=== PATIENT | female | born 1950 | race Caucasian/White ===

== ENCOUNTER 2018-05-24 01:24 | Outpatient (CLI) | payer BC, SELFPAY ==
[2018-05-24 11:15] LABS: HCT 36.4 % (36.0-46.0); HGB 11.7 g/dL (12.0-15.5); Mean Corp. HGB Concentration 32.1 g/dL (32.0-36.0); Mean Corpuscular Hemoglobin 29.4 pg (27.0-33.0); Mean Corpuscular Volume 91.5 fL (80-95); Mean Platelet Volume 10.5 fL (8.0-11.0); Platelet Count 228 x1000/uL (130-400); RBC 3.98 m/cumm (4.00-5.20); RBC Distribution Width 13.3 % (11.7-14.6); White Blood Cell Count 4.47 k/cumm (4.4-10.8)
[2018-05-24 11:45] LABS: ALT 19 U/L (12-78); AST 14 U/L (15-37); Albumin 3.4 g/dL (3.4-5.0); Alkaline Phosphatase 61 U/L (46-116); Anion Gap 6.5 mmol/L (3-11); BUN 30 mg/dL (7-18); Bilirubin, Total 0.7 mg/dL (0.2-1.0); CO2 30.5 mmol/L (21.0-32.0); CREATININE 1.06 mg/dL (0.55-1.02); Calcium 8.8 mg/dL (8.5-10.1); Chloride 103 mmol/L (98-107); Glucose 83 mg/dL (70-100); Potassium 4.3 mmol/L (3.5-5.1); Sodium 140 mmol/L (136-145); TSH 1.31 uIU/mL (0.358-3.74); Total Protein 6.2 g/dL (6.4-8.2)
== END 2018-05-24 01:44 ==
PROVIDERS: PCP Family Medicine; Visit Provider Family Medicine
DX: Z00.00 Encounter for general adult medical examination without abnormal findings (principal); E03.9 Hypothyroidism, unspecified
CPT/HCPCS: 36415; 80053; 85027; 84443

== ENCOUNTER 2018-05-30 07:05 | Day surgery (SDC) | payer BC, SELFPAY ==
--- NOTE | 2018-05-29 10:01 | POEE_ITS ---
History of Present Illness Chief Complaint: Progressive decreased vision, left eye Narrative: The patient is a 67-year old female with history of myopia who has had progressive decreased vision in her left eye over the past year, present particularly while driving. On examination she was noted to have moderate nuclear cataract of the left eye with best corrected vision of 20/70. The option of cataract surgery was offered to the patient and she wished to proceed. NOTE: The Chief Complaint, HPI, Past Medical History, Past Surgical History, Family History, Social History, Medications, and complete Ophthalmic Exam with detailed Assessment and Plan have already been documented in the patient's outpatient ophthalmic record and are not covered again in detail here. PFSH Family History Mother Essential hypertension Hyperlipidemia Father Essential hypertension Heart disease Hyperlipidemia Neoplasm Brother Diabetes Grandfather No problems noted. Grandfather No problems noted. Grandmother Diverticulitis Grandmother No problems noted. Son No problems noted. Daughter Asthma Daughter Depression Medical History Nuclear sclerotic cataract of left eye (Acute) Hypothyroidism Osteoarthritis Social History current occupational status: employed current occupation: [employer] INS[employer]OR pets and animals: No frequency: 5-6 times per week duration: 15-30 minutes/day Smoking/Tobacco Use Status: Never alcohol intake: current alcohol intake frequency: a few times a month substance use type: does not use derik/holiness: [facility] special derik needs: No Surgical History Colonoscopy - IV Sedation (07/21/16) PROCEDURES Replacement of total knee joint Total replacement of hip Meds Home Medications Medication Instructions Recorded Confirmed Type acetaminophen 1 - 2 tab PO BID PRN tab-cap 12/22/12 05/26/18 History clobetasol 1 jose daniel VG BID PRN #60 gm 12/22/12 05/26/18 History levothyroxine 112 mcg PO DAILY #90 tab-cap 09/02/17 05/26/18 Rx Allergies Allergy/AdvReac Type Severity Reaction Status Date / Time No Known Allergies Allergy Unverified 05/17/18 09:30 Exam OCULAR EXAM:: Visual acuity at distance: Best corrected 20/25 right eye, 20/70 left eye Pupils: Pupils equal, round, and reactive without afferent pupillary defect IOP: 15 OD 14 OS Extraocular Motility: Normal Pertinent Slit Lamp Findings: Significant for pupils dilating to 6 mm OU. 1+ nuclear cataract OD. 2+ nuclear cataract OS. Dilated Funduscopic Examination: Disc cupping is 0.2 OU. The optic nerves have good color. There are drusen present in both macula. Peripheral retina and vitreous is normal. BRIGHTNESS ACUITY TESTING (BAT):: Off left eye 20/70 Low: 20/100 Medium: 20/100 High: 20/100 Assessment and Plan (1) Nuclear sclerotic cataract of left eye: Current visit: No Status: Acute Assessment: Visually significant cataract, left eye. Plan: Cataract extraction with intraocular lens implantation, left eye Note: NOTE:: The details of the planned surgery, including the risks, indications, limitations,expectations,outcome and possible complications were explained to the patient. The patient understands the complications including, but not limited to: infection, hemorrhage, posterior dislocation of the lens or nuclear fragments which may require the intervention of a vitreoretinal surgeon, possible loss of the eye, or from anesthetic complications. The patient has been made aware of the option of not having surgery, that vision following surgery may not be equal to that prior to surgery, and that the planned surgery may not achieve the intended results. Following this discussion, which the patient appeared to understand, the patient wishes to proceed with cataract surgery with lens implantation of the affected eye to improve and maximize vision.
--- NOTE | 2018-05-30 06:53 | W.PM.OP ---
Date of service: 05/30/18 Time of Service: 08:50 Operative Note PRE-OP DIAGNOSIS: Cataract, left eye POST-OP DIAGNOSIS: same PROCEDURE: Cataract extraction using phacoemulsification with intraocular lens implant, left eye SURGEON: Teddy Díaz ANESTHESIA: MAC and local (sub-tenon's anesthetic infiltration) PATHOLOGY: none sent COMPLICATIONS: None Patient was transported to: same day Patient's condition: stable Implants: [employer] / [employer] Tecnis [id number] Indications: Progressive decreased vision due to cataract, left eye Procedure Description: CATARACT SURGERY OPERATIVE REPORT PREOPERATIVE DIAGNOSIS: Nuclear cataract, left eye, symptomatic POSTOPERATIVE DIAGNOSIS: Same OPERATION: Cataract extraction using phacoemulsification with posterior chamber intraocular lens implant, left eye. IOL: IOL Saddle Maker/Model: [employer] / MAURY Tecnis ZCB00 IOL Power: + 18.0 diopters IOL Serial Number: [id number] Optic Diameter: 6.0mm Haptic/Overall Diameter: 13.0mm PHACO INFO: Dick [employer]urion Vision System with OZil and Active Fluidics Cumulative Dispersed Energy (CDE): 12.1 seconds SURGEON: Teddy Díaz MD, TORY ANESTHESIA: Monitored Anesthesia Care (MAC), with local sub-tenon's anesthetic infiltration COMPLICATIONS: None SPECIMENS: None INDICATIONS FOR PROCEDURE: The patient is a 67-year-old lady with history of myopia who has developed symptomatic nuclear cataract in the left eye. She has a history of macular drusen as well. Cataract surgery is undertaken and attempt to improve and maximize her vision. She desires to remain myopic postoperatively. She understands that postoperative visual acuity may be limited by the presence of pre-existing macular drusen. PROCEDURE: The correct surgical eye was identified and marked as the left eye and the pupil was dilated in the preoperative area using mydriatics, cycloplegics, and NSAIDS (except in aspirin allergic patients). The dilated pupil size was 8.0 mm. Oral sedation was administered in the form of an Imprimis MKO Melt (midazolam 3mg/ketamine 25mg/ondansetron 2mg). The patient was brought to the operating room where cardiopulmonary monitoring was instituted and surgical time-out was performed, confirming the correct operative eye and IOL power. Topical anesthesia was administered and ophthalmic povidone-iodine 5% was instilled into the conjunctival fornices. Lidocaine gel was applied to the cornea and the janeen-ocular area was prepped with Betadine 10% solution and draped in the usual sterile fashion for intraocular surgery. Steri-strips were used to cover the lashes and lid margins and an adhesive eye drape was placed. Care was taken to isolate the lashes and lid margins under the Steri-strips and adhesive eye drape. A lid speculum was placed between the lids of the operative eye and the Aston-Denis operating microscope was maneuvered into position. Rima scissors were then used to make a conjunctival buttonhole approximately 6mm posterior to the limbus in the inferonasal quadrant. Blunt dissection was carried out to expose bare sclera, and a blunt-tipped sub-tenon?s anesthesia cannula was introduced and passed posteriorly along the globe where non-preserved plain lidocaine was injected into posterior sub-Tenon?s space. A sideport knife was used to make a paracentesis port at the 12:00 postion and the anterior chamber was filled with Healon GV. A 2.4mm keratome knife was used to create a half-thickness groove at the limbus and then to construct a three-plane near-clear corneal tunnel extending 2.0mm into clear cornea at the 3:00 position. A flap was raised on the anterior capsule and capsulorhexis forceps were used to complete a continuous curvilinear capsulorhexis of 5.0 mm. Balanced salt solution was then used to perform cortical cleaving hydrodissection and nuclear hydrodelineation until the lens could be freely rotated within the capsular bag. The lens nucleus was then disassembled and removed within the capsular bag and iris plane using phacoemulsification. Residual cortical material was removed using the 45-degree angled silicone I/A tip with 0.3mm port. The posterior capsule was carefully polished to remove as much residual lens epithelial cells as safely possible. The capsular bag was then inflated and the anterior chamber deepened with viscoelastic. The lens implant described above was inserted into the capsular bag using the MAURY [place] Injector. A Kuglen hook was used to dial the IOL into position. Residual viscoelastic was then removed first from posterior to the IOL, then from the anterior chamber using the I/A handpiece. The lens implant was noted to center nicely within the capsular bag. The incisions were stromally hydrated, and the anterior chamber was reformed using BSS. Then 0.4cc of moxifloxacin 1.5mg/ml were injected into the capsular bag and anterior chamber. The incisions were checked with a Weck spear and found to be secure. Several drops of ophthalmic povidone-iodine 5% were then applied to the eye followed by two drops of Imprimis combination moxifloxacin/dexamethasone solution. The drapes were removed and a clear plastic protective eye shield was placed over the eye. The patient was then returned to [facility] in stable condition.
[2018-05-30 07:17] VITALS: BP 138/68; PULSE 75; RESP 16; TEMP 36.5; O2SAT 100
[2018-05-30] MEDS: Lidocaine 2% Jelly 6 ML SYR (08:20)
[2018-05-30] MEDS: Balanced Salt Soln.-PLUS 500 ML BAG (08:24)
[2018-05-30] MEDS: Lidocaine 1% Pres-Free 5 ML VIAL (08:24)
[2018-05-30] MEDS: Povidone-Iodine Ophth 30 ML BTL (08:44)
--- NOTE | 2018-05-30 08:49 | W.PM.DSUDISC ---
Discharge Plan Discharge Details Reason For Visit: CATARACT OS Attending Provider: Teddy Díaz Primary Care Provider: Ander Villarreal Home Meds and New Rx's Prescriptions: No Action acetaminophen 500 MG tablet 1 - 2 tab PO BID PRN RF: 0 clobetasol 60 GM ointment 1 jose daniel VG BID PRN Qty: 60 RF: 4 levothyroxine 112 MCG tablet 112 mcg PO DAILY Qty: 90 RF: 3 Discharge Instructions Stand Alone Forms: Post-op Topical Cataract, Phil Castillo (DSU) DS: Diagnosis Discharge Diagnosis (1) Nuclear sclerotic cataract of left eye: Status: Resolved (2) Status post cataract extraction and insertion of intraocular lens of left eye: Status: Chronic
[2018-05-30 09:10] VITALS: BP 111/65; PULSE 55; RESP 16; TEMP 36.8; O2SAT 99
== END 2018-05-30 09:15 | disposition home or self-care (01) ==
PROVIDERS: PCP Family Medicine; Visit Provider Ophthalmology
PROC: (CPT 66984; principal; 2018-05-30 08:30)
DX: H25.12 Age-related nuclear cataract, left eye (principal)
CPT/HCPCS: 66984; V2632

== ENCOUNTER 2018-10-04 01:20 | Outpatient (CLI) | payer BC, SELFPAY ==
--- NOTE | 2018-10-04 08:26 | DI.MAMMO_ITS ---
SYMPTOMS/DIAGNOSIS: SCREENING, Z12.31, GENERAL ADULT MEDICAL EXAM, Z00.00 MAMMOGRAM: Mammograms were interpreted according to the usual protocol including computer analysis with CAD system, tomosynthesis and C view imaging. Comparison with prior examinations. Breast density C. No suspicious masses are seen. No suspicious microcalcifications are seen in the right breast. There is a collection of calcifications in the outer left breast. These areas should be further evaluated with magnification views. Ultrasound may be indicated at that time. The skin and axilla appear stable. IMPRESSION: Additional views of the left breast. Category 0. MQSA ASSESSMENT OF FINDINGS: Incomplete: Needs additional imaging evaluation. Category 0. Patient will receive a letter notifying them of these results. Bi-RADS category C. The breasts are heterogeneously dense, which may obscure small masses.
== END 2018-10-04 01:40 ==
PROVIDERS: PCP Family Medicine; Visit Provider Family Medicine
DX: Z00.00 Encounter for general adult medical examination without abnormal findings (principal); Z12.31 Encounter for screening mammogram for malignant neoplasm of breast; R92.8 Other abnormal and inconclusive findings on diagnostic imaging of breast
CPT/HCPCS: 77063; 77067

== ENCOUNTER 2018-10-18 00:25 | Outpatient (CLI) | payer BC, SELFPAY ==
--- NOTE | 2018-10-18 13:40 | DI.COMBO_ITS ---
SYMPTOMS/DIAGNOSIS: F/U ABNORMAL MAMMO, COLLECTION OF CALCIFICATIONS IN OUTER LEFT BREAST ADDITIONAL MAMMOGRAPHIC VIEWS, LEFT BREAST, AND LEFT BREAST ULTRASOUND: Additional images are interpreted according to the usual protocol including tomosynthesis and 2D imaging. Additional mammographic views of the left breast and left breast ultrasound were interpreted in conjunction. These examinations were obtained to evaluate a new group of clumped microcalcifications in the lower outer quadrant of the left breast in the central portion of the breast seen on recent mammography. Magnification spot compression views confirm innumerable microcalcifications with a few pleomorphic forms, but predominantly punctate in appearance. Breast ultrasound shows no convincing mass. No calcifications identified ultrasonographically. CONCLUSION: New clumped microcalcification with indeterminate to suspicious appearance in the lower outer quadrant of the left breast, as described above. Biopsy recommended. Category 4, breast density category C. The findings were discussed with Dr. Villarreal. [facility] ASSESSMENT OF FINDINGS: Suspicious. Biopsy should be considered. Category 4. Patient will receive a letter notifying them of these results. Bi-RADS category C. The breasts are heterogeneously dense, which may obscure small masses.
== END 2018-10-18 00:45 ==
PROVIDERS: PCP Family Medicine; Visit Provider Family Medicine
DX: Z12.31 Encounter for screening mammogram for malignant neoplasm of breast (principal); R92.8 Other abnormal and inconclusive findings on diagnostic imaging of breast; N63.23 Unspecified lump in the left breast, lower outer quadrant
CPT/HCPCS: 76642; 77063; 77067

== ENCOUNTER 2019-05-26 07:55 | Outpatient (CLI) | payer BC, MEDICARE, SELFPAY ==
[2019-05-26 08:34] LABS: Abs Immature Grans 0.01 k/cumm (0.0-0.09); Absolute Basophil Count 0.02 k/cumm (0.0-0.2); Absolute Eosinophil Count 0.16 k/cumm (0.0-0.7); Absolute Lymphocyte Count 0.68 k/cumm (1.2-3.4); Absolute Monocyte Count 0.48 k/cumm (0.11-0.7); Absolute Neutrophil Count 2.23 k/cumm (1.2-6.7); Basophils % 0.6; Eosinophils % 4.5; HCT 36.4 % (36.0-46.0); HGB 11.7 g/dL (12.0-15.5); Immature Grans % 0.3; Mean Corp. HGB Concentration 32.1 g/dL (32.0-36.0); Mean Corpuscular Hemoglobin 29.5 pg (27.0-33.0); Mean Corpuscular Volume 91.7 fL (80-95); Mean Platelet Volume 9.6 fL (8.0-11.0); Monocytes % 13.4; Neutrophils % 62.2; Platelet Count 238 x1000/uL (130-400); RBC 3.97 m/cumm (4.00-5.20); RBC Distribution Width 13.8 % (11.7-14.6); White Blood Cell Count 3.58 k/cumm (4.4-10.8)
[2019-05-26 10:07] LABS: ALT 21 U/L (14-59); AST 14 U/L (15-37); Albumin 3.6 g/dL (3.4-5.0); Alkaline Phosphatase 62 U/L (46-116); Anion Gap 5.8 mmol/L (3-11); BUN 27 mg/dL (7-18); Bilirubin, Total 0.7 mg/dL (0.2-1.0); CO2 31.2 mmol/L (21.0-32.0); CREATININE 1.06 mg/dL (0.55-1.02); Calcium 8.8 mg/dL (8.5-10.1); Chloride 103 mmol/L (98-107); Estimated GFR 51.25 (mL/min/1.73m2); Glucose 89 mg/dL (70-100); Potassium 4.4 mmol/L (3.5-5.1); Sodium 140 mmol/L (136-145); TSH 2.51 uIU/mL (0.36-3.74); Total Protein 6.4 g/dL (6.4-8.2)
[2019-05-29 06:35] LABS: Vitamin D 25 Total 30.6 ng/ml (30-100)
== END 2019-05-26 08:15 ==
PROVIDERS: PCP Family Medicine; Visit Provider Family Medicine
DX: E03.9 Hypothyroidism, unspecified (principal); M81.0 Age-related osteoporosis without current pathological fracture; Z00.00 Encounter for general adult medical examination without abnormal findings; D64.9 Anemia, unspecified
CPT/HCPCS: 36415; 80053; 82306; 84443; 85025

== ENCOUNTER 2019-08-03 02:23 | Outpatient (CLI) | payer BC, MEDICARE, SELFPAY ==
--- NOTE | 2019-08-03 16:22 | DI.DEXA_ITS ---
EXAM: XR DEXA BONE DENSITY W/WO SIN CLINICAL HISTORY: osteoporosis, M81.0, H/O BREAST CA COMPARISON: No exams were available for comparison FINDINGS: DEXA scan was performed according to the usual protocol. Findings for left hip scanning are T-score -1.5 with left femoral neck T-score -2.1. Prior study of December 2009 showed left hip T-score -1.0. Lumbar spine scanning shows T-score -1.8. Prior study shows T-score -2.4. Left forearm scanning shows T-score -3.8. IMPRESSION: Findings consistent with osteoporosis according to the WHO criteria. Lateral vertebral scanogram show s no evidence of a vertebral compression fracture.
== END 2019-08-03 02:43 ==
PROVIDERS: PCP Family Medicine; Visit Provider Family Medicine
DX: M81.0 Age-related osteoporosis without current pathological fracture (principal)
CPT/HCPCS: 77080

== ENCOUNTER 2020-05-31 02:37 | Outpatient (CLI) | payer MEDICARE, SELFPAY ==
[2020-05-31 11:46] LABS: ALT 20 U/L (14-59); AST 17 U/L (15-37); Albumin 3.8 g/dL (3.4-5.0); Alkaline Phosphatase 69 U/L (46-116); BUN 23 mg/dL (7-18); Bilirubin, Total 0.7 mg/dL (0.2-1.0); CREATININE 1.11 mg/dL (0.55-1.02); Calcium 8.9 mg/dL (8.5-10.1); Chloride 103 mmol/L (98-107); Estimated GFR 48.46 (mL/min/1.73m2); Glucose 90 mg/dL (74-106); Potassium 4.4 mmol/L (3.5-5.1); Sodium 142 mmol/L (136-145); Total Protein 6.8 g/dL (6.4-8.2)
== END 2020-05-31 02:57 ==
PROVIDERS: PCP Family Medicine; Visit Provider Family Medicine
DX: E03.9 Hypothyroidism, unspecified (principal); M81.0 Age-related osteoporosis without current pathological fracture
CPT/HCPCS: 36415; 80053; 82306; 84443

== ENCOUNTER 2020-08-30 01:25 | Outpatient (CLI) | payer MEDICARE, SELFPAY ==
[2020-08-30 10:00] LABS: Anion Gap 6.1 mmol/L (3-11); BUN 28 mg/dL (7-18); CO2 29.9 mmol/L (21.0-32.0); CREATININE 1.1 mg/dL (0.55-1.02); Calcium 9.1 mg/dL (8.5-10.1); Chloride 106 mmol/L (98-107); Estimated GFR 48.96 (mL/min/1.73m2); Glucose 95 mg/dL (74-106); Potassium 4.5 mmol/L (3.5-5.1); Sodium 142 mmol/L (136-145); TSH 0.37 uIU/mL (0.36-3.74)
== END 2020-08-30 01:26 | disposition home or self-care (01) ==
LOC: LBO 01:25
PROVIDERS: PCP Family Medicine; Visit Provider Family Medicine
DX: E03.9 Hypothyroidism, unspecified (principal)
CPT/HCPCS: 36415; 80048; 84443

== ENCOUNTER 2021-03-28 11:53 | Outpatient (CLI) | payer MEDICARE, SELFPAY ==
--- NOTE | 2021-03-28 11:45 | RT.EKG_ITS ---
APPROVED REPORT Exam: Resting ECG Reason for Exam: near syncope Patient Location: O HR:59 bpm ECG Measurements Heart Rate 59 AXIS WI 179 P 53 QRSd 92 QRS 28 QT 424 T 41 QTc 420 Conclusion Sinus bradycardia...rate< 60
== END 2021-03-28 11:54 | disposition home or self-care (01) ==
LOC: DI.CM 11:55
PROVIDERS: PCP Family Medicine; Visit Provider Family Medicine
DX: R55 Syncope and collapse (principal)
CPT/HCPCS: 93010

== ENCOUNTER 2021-04-07 01:33 | Outpatient (CLI) | payer MEDICARE, SELFPAY ==
--- NOTE | 2021-04-07 08:00 | ETT_ITS ---
APPROVED REPORT Exam: Exercise Treadmill Patient Location: Out-Patient Room/Bed: Stress Nurse: Griselda Amaro RN Ordering Provider:KEN HURST MD, Contact Number: [phone] BMI: 25.05 Baseline Rhythm: Sinus Rhythm Indications: Dyspnea, unspecified. Medical History Cardiac Medications: None. Allergies: No known drug allergies Cardiac Risk Factors: FHX of CAD Previous Cardiac Procedures: None. Pretest Chest Pain Characteristics: None. Exercise History: Physically active Physical Disabilities: None. Lung Sounds: Clear to auscultation Heart Sounds: Regular Stress Test Details Test: Exercise stress testing was performed using a Sae protocol. Rest Stress HR Resting HR Supine: 61 bpm Max Heart Rate (APMHR): 148 bpm Resting HR Standin bpm Target HR (85% APMHR): 125 bpm Max HR Achieved: 130 bpm % of APMHR: 87 Recovery HR: 73 bpm HR response to stress: Normal HR response to stress BP Resting BP Supine: 128/82 mmHg Resting BP Standin/80 mmHg Max BP: 152/60 mmHg Recovery BP: 134/76 mmHg BP response to stress: Normal blood pressure response to stress. ECG Resting ECG: Sinus Rhythm Ectopy: None Stress ECG: Sinus Tachycardia ST Change: No significant ST segment changes noted Arrhythmia: rare PVC. Recovery ECG: Sinus Rhythm Recovery ST Change: No significant ST segment changes noted Recovery Arrhythmia: rare PAC Clinical Reason for Termination: Fatigue Stress Symptoms: General Fatigue Exercise duration: 9 min35 sec Highest Stage Reached: Stage 4: 4.2 mph at 16% grade. Exercise capacity: 11.1 METs [place] Treadmill Score: 9.3 Rate Pressure Product: [id number] Stress ECG Conclusion 1. The patient exercised for 9 minutes and 35 seconds (11 METS). Exercise was stopped due to fatigue . 2. Patient had no symptoms suggestive of ischemia 3. There is no evidence of ischemia on the ECG portion of the exam. [place] Treadmill Score is 9.3 which is Low risk. Stress Test Summary STAGE Time (mins) Speed (mph) Grade (%) HR BP SYMPTOMS METS Supine 61 128/82 Standing 86 120/80 1 3 1.7 10 97 130/78 SpO2 93% 4.6 2 6 2.5 12 109 136/74 7 3 9 3.4 14 124 10.2 1 min recovery 118 152/60 SpO2 95% 3 min recovery 85 140/66 6 min recovery 73 134/76 Patient denied any episodes of dizziness, lightheadedness, or shortness of breath during or after exe rcise.
== END 2021-04-07 01:53 ==
PROVIDERS: PCP Family Medicine; Visit Provider Family Medicine
DX: R06.00 Dyspnea, unspecified (principal); Z82.49 Family history of ischemic heart disease and other diseases of the circulatory system
CPT/HCPCS: 93016; 93018; 93017

== ENCOUNTER 2021-05-08 02:38 | Outpatient (CLI) | payer MEDICARE, SELFPAY ==
[2021-05-08 08:39] LABS: Abs Immature Grans 0.01 10^3/uL (0.0-0.06); Absolute Basophil Count 0.04 10^3/uL (0.0-0.2); Absolute Eosinophil Count 0.17 10^3/uL (0.0-0.7); Absolute Lymphocyte Count 1.01 10^3/uL (1.2-3.4); Absolute Monocyte Count 0.45 10^3/uL (0.1-0.8); Absolute Neutrophil Count 2.34 10^3/uL (1.2-6.7); Eosinophils % 4.2; HCT 35.7 % (36.0-46.0); HGB 11.3 g/dL (11.2-15.7); Immature Grans % 0.2; Lymphocytes % 25.1; MCHC 31.7 % (32.0-36.0); MCV 91.8 fL (80-95); MPV 9.6 fL (8.0-11.0); Monocytes % 11.2; Neutrophils % 58.3; Nucleated RBC 0 %; Platelet Count 226 10^3/uL (130-400); RBC 3.89 10^6/uL (3.93-5.22); RDW 13.6 % (11.7-14.6); RDW-SD 46.7 fL; WBC 4.02 10^3/uL (4.4-10.8)
[2021-05-08 10:17] LABS: Anion Gap 5.5 mmol/L (3-11); BUN 32 mg/dL (7-18); CO2 30.5 mmol/L (21.0-32.0); CREATININE 1.1 mg/dL (0.55-1.02); Calcium 8.8 mg/dL (8.5-10.1); Calculated LDL 146 mg/dL (<100); Chloride 106 mmol/L (98-107); Cholesterol 233 mg/dL (<200); Estimated GFR 48.82 (mL/min/1.73m2); Glucose 86 mg/dL (74-106); HDL Cholesterol 76 mg/dL (40-60); Potassium 4.6 mmol/L (3.5-5.1); Sodium 142 mmol/L (136-145); TSH (W/Ref FT4) 1.11 uIU/mL (0.36-3.74); Triglyceride 57 mg/dL (<150)
== END 2021-05-08 02:39 | disposition home or self-care (01) ==
LOC: LBO 02:39
PROVIDERS: PCP Family Medicine; Visit Provider Family Medicine
DX: E03.9 Hypothyroidism, unspecified; R55 Syncope and collapse; Z00.00 Encounter for general adult medical examination without abnormal findings
CPT/HCPCS: 36415; 80048; 80061; 84443; 85025

== ENCOUNTER 2022-06-03 03:23 | Outpatient (CLI) | payer MEDICARE, SELFPAY ==
[2022-06-03 09:34] LABS: COMMENT (LAB VIEW ONLY) 113.77 mg/dL
[2022-06-03 09:38] LABS: Anion Gap 3.1 mmol/L (3-11); BUN 28 mg/dL (7-18); CO2 29.9 mmol/L (21.0-32.0); CREATININE 1.2 mg/dL (0.55-1.02); Calcium 8.6 mg/dL (8.5-10.1); Chloride 102 mmol/L (98-107); Glucose 95 mg/dL (74-106); Potassium 4.3 mmol/L (3.5-5.1); Sodium 135 mmol/L (136-145); TSH (W/Ref FT4) 0.29 uIU/mL (0.36-3.74)
[2022-06-03 09:42] LABS: Microalb ug/mg Crea 192.1 ug/mg Cr
[2022-06-03 10:00] LABS: FREE T4 1.47 ng/dL (0.76-1.46)
== END 2022-06-03 03:24 | disposition home or self-care (01) ==
LOC: LBO 03:24
PROVIDERS: PCP Family Medicine; Visit Provider Family Medicine
DX: E03.9 Hypothyroidism, unspecified (principal); E11.9 Type 2 diabetes mellitus without complications; N18.31 Chronic kidney disease, stage 3a
CPT/HCPCS: 36415; 80048; 82043; 82570; 84439; 84443

== ENCOUNTER 2022-06-09 04:05 | Outpatient (CLI) | payer MEDICARE, SELFPAY ==
[2022-06-09 15:18] LABS: TSH (W/Ref FT4) 0.33 uIU/mL (0.36-3.74)
[2022-06-09 15:34] LABS: FREE T4 1.29 ng/dL (0.76-1.46)
[2022-06-10 13:29] LABS: Albumin 62.2 % (55.8-66.1); Albumin g/dL 3.8 g/dL (3.6-5.2); Total Protein 6.1 g/dL (6.3-8.2)
[2022-06-10 15:27] LABS: Kappa Free Light Chain 2.68 mg/dL (0.33-1.94); Lambda Free Light Chain 1.62 mg/dL (0.57-2.63)
== END 2022-06-09 04:06 | disposition home or self-care (01) ==
PROVIDERS: PCP Family Medicine; Visit Provider Family Medicine
DX: E03.9 Hypothyroidism, unspecified (principal); N18.31 Chronic kidney disease, stage 3a; R80.9 Proteinuria, unspecified
CPT/HCPCS: 36415; 83883; 84165; 84439; 84443

== ENCOUNTER 2022-06-11 12:00 | Outpatient (REF) | payer MEDICARE, SELFPAY ==
[2022-06-11 13:24] LABS: PROTEIN < 6.0 mg/dL (0.0-11.9); Total Volume 1600 ml
[2022-06-17 15:42] LABS: Total Protein Urine 9 mg/dL; Urine Collection Period 24 Hours; Urine Volume 1600 mL
[2022-06-17 15:43] LABS: Albumin, Urine % 30.7 %; Globulins, Urine % 69.3 %; Total Protein, Urine 24hrs 144 mg/24hrs
== END 2022-06-11 12:01 | disposition home or self-care (01) ==
LOC: LBN 12:00
PROVIDERS: PCP Family Medicine; Visit Provider Family Medicine
DX: N18.31 Chronic kidney disease, stage 3a (principal); R80.9 Proteinuria, unspecified
CPT/HCPCS: 84156; 84166; 86335; 81050; 84155

== ENCOUNTER 2023-01-27 02:38 | Outpatient (CLI) | payer MEDICARE, SELFPAY ==
[2023-01-27 12:56] LABS: ALT 18 U/L (14-59); AST 16 U/L (15-37); Albumin 3.5 g/dL (3.4-5.0); Alkaline Phosphatase 64 U/L (46-116); Anion Gap 6.1 mmol/L (3-11); BUN 33 mg/dL (7-18); Bilirubin, Total 0.7 mg/dL (0.2-1.0); CO2 30.9 mmol/L (21.0-32.0); CREATININE 1.3 mg/dL (0.55-1.02); Calcium 8.7 mg/dL (8.5-10.1); Chloride 104 mmol/L (98-107); Estimated GFR 43.15 (mL/min/1.73m2); Glucose 91 mg/dL (74-106); Potassium 4.4 mmol/L (3.5-5.1); Sodium 141 mmol/L (136-145); Total Protein 6.8 g/dL (6.4-8.2)
[2023-01-27 12:58] LABS: COMMENT (LAB VIEW ONLY) 149.04 mg/dL; Microalb ug/mg Crea 12.2 ug/mg Cr
== END 2023-01-27 02:39 | disposition home or self-care (01) ==
LOC: LOS 02:38
PROVIDERS: PCP Family Medicine; Visit Provider Family Medicine
DX: E11.9 Type 2 diabetes mellitus without complications (principal); N18.31 Chronic kidney disease, stage 3a
CPT/HCPCS: 36415; 80053; 82043; 82570

== ENCOUNTER → 2023-02-11 10:44 | Outpatient (BNVA) | payer MEDICARE, SELFPAY | PROVIDERS: PCP Family Medicine; Referring Provider Family Medicine; Visit Provider Physical Therapy Assistant | DX: Z12.11 Encounter for screening for malignant neoplasm of colon (principal) ==

== ENCOUNTER 2023-03-26 06:28 | Day surgery (SDC) | payer MEDICARE, SELFPAY ==
--- NOTE | 2023-03-25 19:36 | HPE_ITS ---
Date of service: 03/26/23 Time of Service: 07:25 Assessment and Plan Assessment and plan (1) Hypothyroidism: Status: Acute (2) Osteoarthritis: Status: Acute (3) Stress incontinence of urine: Status: Acute (4) Varicose veins of lower extremity: Status: Acute (5) Polyp of colon: Status: Acute Assessment and plan: Plan: Colonoscopy w/ general & natural airway. The?patient will be scheduled by my office. Informed consent is obtained for the procedural (explained in simple layman's terms that?the pt and/or family could understand) explaining risks vs benefits and alternatives to the procedure and consequences if we do not do the procedure and need/rational for the procedure. Risks include but are not limited to: bleeding, infection, perforation of colon.? This would necessitate emergency surgery to repair the damage w/ possible ostomy; and other associated complications w/ the required surgery. ? Also complications of anesthesia including aspiration, PA/CVA/, inability to complete the procedure. I discussed with the?patient would they could expect during the procedure, post procedure and recovery time and risks.? The patient understands that they need to have a ride home after the procedure.? The patient was given all this information in writing and expressed understanding. If there are any questions or concerns please feel free to contact our office.? Generally Colonoscopy does not require antibiotics prophylaxis, (6) CKD stage G3a/A1, GFR 45-59 and albumin creatinine ratio <30 mg/g: Status: Acute (7) Ductal carcinoma in situ (DCIS) of left breast: History of Present Illness Narrative: Today 03/26/23 Patient is here today for colonoscopy for Addenomatous polyps.??? They completed a bowel prep with just a clear yellow residual effluent.? They not having any chest pain or shortness of breath, currently.? They are not experiencing any fever or chills.? They deny any productive cough or upper respiratory tract infection signs or symptoms.? They are not having abdominal pain, or nausea and vomiting.? They have not had any changes in medications, past medical history or past surgical history since previously being seen in the office. They have not had any accidents or have been in the ER since the clinic pre-operative evaluation. ??I reviewed the procedure with the patient today, including risks and benefits of the procedure, and what they could expect at home for recovery.? All questions are answered to the patient?s satisfaction today, and they are stable to proceed with the proposed procedure. Office 02/11/21 The patient is here for Colonoscopy pre-op.?Her last screening was in 2015, which was unremarkable. Colonoscopy from 2010 was remarkable for tubular adenomatous polyp.?She denies having any family history of colon cancer.?She describes having more frequent bouts of constipation having difficulty and pain for bowel movements.? She states gone as long as 2 to 3 weeks without a bowel movement.? She rarely notes blood on the toilet paper after bowel movement.? She relates these issues to her hydration status and she intermittently uses MiraLAX to help facilitate bowel movements.? She is currently had significant improvement with her bowel habits and that she now has daily bowel movements which are solid, round pieces she denies having any diarrhea, abdominal pain bloating or discomfort since these changes. -Discussed colonoscopy bowel prep as well as the procedure. Discussed possible complications of the procedure to include bleeding, pain, perforation, missed small lesion/polyp, sore throat, aspiration and adverse reaction to the medications. Questions were answered to patient?s satisfaction. No guarantees were implied or given.? Anesthesia: general (without airway) Previous surgical intolerances: None Previous surgical complications: None Pulmonary risk factors:? None PFT's: None Planned procedure: Yes Sleep apnea risks: No Can climb one flight of stairs (12-13 steps) in less than 30 seconds without stopping and without symptoms: Yes The surgery proposed for this patient is: Low risk Active cardiac conditions: None ECHO: None Stress Test: 2020-patient had no symptoms to suggest ischemia.? No evidence of ischemia on her ECG.? She reached a Hayward treadmill score of 9.3 which is low risk. Active risk factors: None ASA (acetylsalicylic acid):No Beta blockers: No Anti-coagulation:? None Medications to be held: N/a P// Colonoscopy under sedation ? 72 y/o female with history of [id number], orthostatic hypotension and CKD presents for colonoscopy screening pre-op. Her last screening was in 2015, which was unremarkable. Colonoscopy from 2010 was remarkable for tubular adenomatous polyp.. She denies a family history of colon cancer.? She describes having more frequent bouts of constipation having difficulty and pain for bowel movements.? She states gone as long as 2 to 3 weeks without a bowel movement.? She rarely notes blood on the toilet paper after bowel movement.? She relates these issues to her hydration status and she intermittently uses MiraLAX to help facilitate bowel movements.? She is currently had significant improvement with her bowel habits and that she now has daily bowel movements which are solid, round pieces she denies having any diarrhea, abdominal pain bloating or discomfort since these changes.? She denies constitutional symptoms.? Of note the patient does have a diagnosis of vertigo and orthostatic hypotension which affects her mostly when she is changing positions rapidly. She denies chest pain, palpitations, dyspnea or dyspnea with exertion.? She is physically active participating in tennis, golf and pickleball.? She denies prior history or family history of adverse reactions or complications with anesthesia. The patient denies any history of stroke, PA, seizures, bleeding or clotting disorders.? She describes having metal implanted in her right hip.? She has previously received radiation to her left breast. Review of Systems All systems reviewed & are unremarkable except as noted in HPI and below PFSH All Active Problems Hypothyroidism (Acute 02/21/13) Lichen sclerosus et atrophicus (Acute) Osteoarthritis (Acute 06/28/12) Osteoporosis (Acute) Stress incontinence of urine (Acute 05/13/17) Varicose veins of lower extremity (Acute) Polyp of colon (Acute) CKD stage G3a/A1, GFR 45-59 and albumin creatinine ratio <30 mg/g (Acute) Orthostatic hypotension (Chronic) Making adaptations, declines meds at present. 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 Managed by [facility]. Surgical History (Updated 03/26/23 @ 06:34 by Satcy Luevano) History of cataract surgery History of hip replacement S/P left knee arthroscopy Status post cataract extraction and insertion of intraocular lens of left eye (05/30/18) Status post hip replacement Status post left breast lumpectomy Family History Mother , age 94 Essential hypertension Hyperlipidemia Father , age 65 Essential hypertension Heart disease Hyperlipidemia Prostate cancer Brother , age 80 Diabetes Maternal Grandmother , age 88 Diverticulitis Paternal Grandmother No problems noted. Son No problems noted. Daughter Asthma Daughter Depression Maternal Grandfather , age 91 No problems noted. Paternal Grandfather , age 85 No problems noted. Social History Smoking/Tobacco Use Status: Never Second Hand Exposure: Yes Smoking risk assessment performed?: Yes Alcohol Intake: current Alcohol Intake frequency: a few times a week Alcohol type: beer, wine and hard liquor Drug use: Never Substance use type: does not use Caregiver/Support person: No Household members: spouse Housing: house Number of Children: 3 number of grandchildren: 3 Communication Needs: None Do you need help understanding health information?: Never current occupation: RETIRED, worked in offices Pets and animals: No Sexually active: No Do you think of yourself as: straight/heterosexual Current gender identity: female What is your relationship status?: How often do you talk on the phone with friends or family?: three or more times per week How often do you get together with friends or relatives?: twice per week How often do you attend pentecostal or islam services?: 4 or more times per year Do you belong to any clubs or organized social groups?: yes Panel score (0-1 are the most socially isolated patients): 4 What type of physical activity do you participate in: walking Duration: 15-30 minutes/day Frequency: 3-4 times per week Dary/Christianity: Zoroastrian Special dary needs: No Seatbelt use: always Helmet use: Yes Helmet use: always Drive intox or ride w/intox 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 Do you feel safe at home: Yes Do you feel safe in your relationship?: Yes Victim of physical abuse: No Victim of emotional abuse: No Victim of sexual abuse: No Would you like helpful sources: No Meds Allergies and Home Medications Allergies Allergy/AdvReac Type Severity Reaction Status Date / Time No Known Allergies Allergy Unverified 03/26/23 06:36 Home Medications Medication Instructions Recorded Confirmed Type acetaminophen 500 mg tablet 1 - 2 tab PO BID PRN 12/22/12 03/24/23 History clobetasol 0.05 % topical ointment 1 applic vaginal BID PRN #60 grams 05/29/22 03/24/23 Rx levothyroxine 112 mcg tablet 112 mcg PO DAILY #90 tabs 11/30/22 03/26/23 Rx Exam Const Other: PHYSICAL EXAM GENERAL APPEARANCE: Alert, healthy appearance, oriented, x 3,? in no acute distress HYDRATION: Well hydrated HEAD, EYES, EARS, NECK, THROAT: Head is normocephalic, pupils equal, round, reactive to light and accommodation, ocular movement intact, sclera clear and no jaundice. ?Dentition intact. No sore throat.? LUNGS: normal respiration/normal chest excursion. ?Clear to auscultation bilaterally. ?No wheeze. ?HEART: Regular rate and rhythm. no murmurs EXTREMITY: No edema or cyanosis.? no leg pain, redness, swelling.? ABDOMEN: soft and non-tender to palpation.? Normal bowel sounds.? Time Spent Time spent with Patient: 40-54 minutes Time was spent: preparing to see the patient(eg.review tests), obtaining and/or reviewing separately otained hiistory, ordering medications,tests, procedures, referring, communicating with other health senior care provider, indepentently interpreting results, counseling the patient and care coordination
--- NOTE | 2023-03-25 19:41 | W.COLOREPORT ---
Date of service: 03/26/23 Time of Service: 08:23 Colonoscopy Report Date of procedure: 03/26/23 Pre-op diagnosis general: A. polyps Post-op diagnosis procedure note: same Surgeon: Emily Jorge Anesthesia Type: General:No Airway Estimated blood loss (mL): 1 Pathology: other Complications: None Disposition: same day Prep: Miralax/Dulcolax Retraction Time: 21 Procedure Description: After informed consent was obtained the patient was taken to the procedure room and placed in a left decubitous position. Monitors were applied and a time out was done. The patients name, date of , procedure, allergies to medications and metal in their body was reviewed. The patient was then sedated. Once sedated and comfortable a rectal exam was done. External exam was normal. Internal exam revealed a normal sphincter tone and no palpable masses. The scope was then introduced and retrofelexed. No internal hemorrhoids were identified. The scope was then advanced to the cecum. The without difficulty. The TI and appendiceal orifice were identified. The prep was BBPS 2 in all segments for a total of 6. The scope was then slowly retracted over 21 minutes back into the rectum. Polyps were removed at 40cm- 5mm flat polyps removed w/ a cold forcept. All specimens were retrieved and no bleeding is noted. There mucosa is pink and healthy with a normal vascular pattern. There are no diverticula or AVM's. The scope was removed and the patient was woken up and taken back to Same day surgery in stable condition. The patient tolerated the procedure well and there were no immediate complications. Follow up: The patient should follow up in 7-10 years unless they develop changes in bowel habits or other new gastrointestinal complaints.
--- NOTE | 2023-03-25 19:42 | PDOC.DSDIS_ITS ---
Date of service: 03/26/23 Time of Service: 08:22 Discharge Plan Disposition Patient Disposition: Home Condition: Good Discharge Details Reason For Visit: colon scope Attending Provider: Emily Jorge Primary Care Provider: Rimma Alvarez Home Meds and New Rx's Prescriptions: Continued clobetasol 0.05 % ointment 1 applic VG BID PRN Qty: 60 0RF acetaminophen 500 MG tablet 1 - 2 tab PO BID PRN levothyroxine 112 mcg tablet 112 mcg PO DAILY Qty: 90 1RF Discontinued bisacodyl [Dulcolax (bisacodyl)] 5 mg tablet,delayed release (DR/EC) 5 mg PO ONCE Qty: 4 0RF Rx Instructions: Take per colonoscopy instructions provided by ordering providers office polyethylene glycol 3350 17 gram/dose powder 17 g PO ONCE Qty: 238 0RF Rx Instructions: Take per colonoscopy instructions provided by ordering providers office Discharge Instructions Additional Instructions: DSU Colonoscopy Post- Op Instructions Instructions for Everyone who is given Anesthesia: For your safety, please do the following for the next twenty-four (24) hours: *Do Not operate a motor vehicle (car, truck, motorcycle, etc.) *Do Not drink alcoholic beverages or use any recreational drugs for the first 24 hours or while taking pain medications. The medications in your body may have a reaction that can be dangerous. *Do Not make any important decisions or sign any important papers. Findings: x1 small polyp Follow up: My office will send a letter in 2 to 3 weeks time with the results of pathology and when we want you to repeat colonoscopy. 1. No lifting over 20 pounds or strenuous activity for the first 24 hours after your procedure. After 24 hours there are no restrictions on your activity but you may feel fatigued for a few days. 2. After you arrive home you may have a light meal and return to your normal diet as you can tolerate it without feeling sick to your stomach. 3. You may have a bloated, gaseous feeling in your belly (abdomen) after a colonoscopy. Passing gas and belching will help. Walking or lying down on your left side with your knees flexed may relieve the discomfort. Call the office at [phone] (Office) or [phone] (Hospital) right away if you notice any of the following: a.Vomiting of blood or ?coffee ground stools?. b.Rectal bleeding 1Tbsp, blood clots or continuous bleeding. c.Severe belly (abdominal) pain. d.A hard distended belly (abdomen) and an inability to pass gas. 4. Please don?t expect to have a normal BM (bowel movement) for 2-3 days after your procedure. 5. If there are questions regarding the findings of your procedure, please conta ct your doctor 6. If you are unable to contact your doctor with a problem, contact the hospital at [phone]. 7. Continue all your regular medications unless directed otherwise. I understand the above instructions and have no questions. Signature of Patient or Adult Escort Name of Responsible Adult Escort Signature of Nurse Date/Time Activity:: see above Diet:: see above Discharge Orders Discharge Orders: Discharge Order (Routine); Ordered 03/26/23 Ordered By: Emily Jorge DS: Diagnosis Discharge Diagnosis (1) Hypothyroidism: Status: Acute (2) Osteoarthritis: Status: Acute (3) Stress incontinence of urine: Status: Acute (4) Varicose veins of lower extremity: Status: Acute (5) Polyp of colon: Status: Acute Asessment and Plan: The patient is seen and examined after their colonoscopy.? The patient has been able to pass gas.? They are not having abdominal pain.? They have been able to tolerate liquids and a snack.? They do not have any nausea or vomiting.? They are not having any chest pain or shortness of breath.??? They are not having any rectal bleeding. Their vital signs have been stable-see nursing notes. We discussed findings during their colonoscopy, and any biopsies that were done/polyps that were removed. The patient will be sent a letter with any biopsy results, and when to repeat the colonoscopy.-see discharge instructions. Patient was given explicit instructions to follow-up regarding colonoscopy-refer to discharge instructions.? We reviewed resumption of medications. Patient verbalized understanding and discharged in stable and satisfactory condition- See nursing notes. (6) CKD stage G3a/A1, GFR 45-59 and albumin creatinine ratio <30 mg/g: Status: Acute (7) Ductal carcinoma in situ (DCIS) of left breast:
[2023-03-26 06:15] VITALS: BP 123/74; PULSE 79; RESP 16; TEMP 36.6; O2SAT 100
[2023-03-26] MEDS: Lactated Ringers 1,000 ML 80 ML IV (06:48)
--- NOTE | 2023-03-26 07:00 | ANES.PREOP_ITS ---
General Info Date of Service Date Performed: 03/26/23 Height: 5 ft 6.5 in Weight: 67.5 kg Body Mass Index (BMI): 23.6 Surgical Procedure: Operation Date: 03/26/23 07:35 Proposed Procedure Side Surgeon ame Jorge, DO Meds Allergies and Home Medications Allergies Allergy/AdvReac Type Severity Reaction Status Date / Time No Known Allergies Allergy Unverified 03/26/23 06:36 Home Medication Medication Instructions Recorded acetaminophen 500 mg tablet 1 - 2 tab PO BID PRN 12/22/12 clobetasol 0.05 % topical ointment 1 applic vaginal BID PRN #60 grams 05/29/22 levothyroxine 112 mcg tablet 112 mcg PO DAILY #90 tabs 11/30/22 Current Visit Medications: Current Medications Generic Name Dose Route Start Last Admin Trade Name Freq PRN Reason Stop Dose Admin Hyoscyamine Sulfate 0.125 mg 03/26/23 10:02 Hyoscyamine 0.125 Mg Sl/Oral/Chew SL 04/25/23 10:01 DIRECTED PRN Ringer's Solution 1,000 mls @ 80 mls/hr 03/26/23 06:00 03/26/23 06:48 IV 04/24/23 23:59 80 mls/hr INFUSION KANE Administration IV Miscellaneous Supplies 1 each 03/26/23 06:00 Iv Access IV 04/24/23 23:59 DIRECTED KANE Ondansetron HCl 4 mg 03/26/23 10:02 Ondansetron 4 Mg/2 Ml Vial IVP 04/25/23 10:01 Q4H PRN PRN Nausea / Vomiting Sodium Chloride 0 ml 03/26/23 06:00 Normal Saline Flush 10 Ml Syr IV 04/24/23 23:59 PRN PRN Sodium Chloride 0 ml 03/26/23 06:00 Normal Saline 10 Ml Vial IJ 04/24/23 23:59 DIRECTED PRN Sterile Water 0 ml 03/26/23 06:00 Water,Injection,Sterile 10 Ml Vial IJ 04/24/23 23:59 DIRECTED PRN PFSH Active Problems Active Problems: Problem Status Onset Code Hypothyroidism 02/21/13 E03.9 Lichen sclerosus et atrophicus L90.0 Osteoarthritis 06/28/12 M19.90 Osteoporosis M81.0 Stress incontinence of urine 05/13/17 N39.3 Varicose veins of lower extremity I83.90 Polyp of colon K63.5 CKD stage G3a/A1, GFR 45-59 and albumin creatinine ratio <30 mg/g N18.31 Orthostatic hypotension I95.1 Medical History Medical History Basal cell carcinoma of skin (03/25/12) 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 Managed by [facility]. Surgical History Surgical History (Updated 03/26/23 @ 06:34 by Stacy Luevano) History of cataract surgery History of hip replacement S/P left knee arthroscopy Status post cataract extraction and insertion of intraocular lens of left eye (05/30/18) Status post hip replacement Status post left breast lumpectomy Tobacco Smoking/Tobacco Use Status: Never Passive smoking exposure: Yes Second hand exposure: Yes Alcohol Alcohol Intake: current Alcohol intake frequency: a few times a week Alcohol type: beer, wine and hard liquor Substance Use Substance use: Never Substance use type: does not use Vital Signs and Lab Results Vital Signs Most Recent Vital Signs in EMR: Most Recent Vital Signs Temp Pulse Resp BP Pulse Ox 36.6 C 79 16 123/74 100 03/26/23 06:15 03/26/23 06:15 03/26/23 06:15 03/26/23 06:15 03/26/23 06:15 Lab Results Blood Type / Crossmatch: No Data to Display Complete Blood Count: No Data to Display Complete Metabolic Panel: No Data to Display Liver Function Panel: No Data to Display Coagulation Panel: No Data to Display Cardiac Panel: No Data to Display Arterial Blood Gas: No Data to Display Venous Blood Gas: No Data to Display Pancreas Panel: No Data to Display Thyroid Panel: No Data to Display Infectious Disease: No Data to Display Blood Cultures: No Data to Display Toxicology Panel: No Data to Display Imaging and Studies Imaging and Studies Study information below may be from another EMR and interpreted by another provider. Please see original notes in EMR for more complete details. EKG Summary: DATE/TIME OF SERVICE: 03/28/21 1202 : 1950PERFORMING LOCATION: [facility] APPROVED REPORT Exam: Resting ECG Reason for Exam: near syncope Patient Location: O HR:59 bpm ECG Measurements Heart Rate 59 AXIS IN 179 P 53 QRSd 92 QRS 28 QT 424 T41 QTc 420 Conclusion Sinus bradycardia...rate< 60 Stress Test Summary: 04/07/2021:Stress ECG Conclusion 1. The patient exercised for 9 minutes and 35 seconds (11 METS). Exercise was stopped due to fatigue. 2. Patient had no symptoms suggestive of ischemia 3. There is no evidence of ischemia on the ECG portion of the exam. Hayward Treadmill Score is 9.3 which is Low risk. Anesthesia Assessment and Plan Anesthesia History Personal History: No History of Anesthesia Complications Family History: No Family History of Anesthesia Complications Exercise Tolerance Exercise Tolerance: Metabolic Equivalents>4 Pertinent Negatives Pertinent Negatives: No Symptoms of GERD, No Major Cardiovascular Symptoms or Complaints and No Major Pulmonary Symptoms or Complaints Cardiac & Pulmonary Exam Cardiac Exam: Normal S1/S2 Heart Sounds Pulmonary Exam: Clear Bilateral Breath Sounds Implantable Cardiac Device Does patient have a Pacemaker or an ICD?: No Airway Exam Known Difficult Airway: No Mallampati Class: 1 Mouth Opening: Normal (> 3cm) Thyromental Distance: Less than 3 cm Neck Range of Motion: Full ROM Neck Circumference: Normal Teeth Condition: Normal Dentition ASA Classification ASA Score: ASA 2 Emergency Case?: No NPO Status NPO Status: NPO Clears >2 hours, Solids >8 hours Anesthesia Plan Resuscitation Status: Full Code Anesthesia Technique: General Anesthesia Airway Planned: Natural Airway Monitors Used: Standard Monitors
[2023-03-26 07:06] VITALS: BMI 23.6
--- NOTE | 2023-03-26 08:00 | BOWEL_PTH ---
PATIENT: Jorge L Mariano LOC: [facility] U#:[id number] AGE/SX: 72/F ROOM: RE03/26/[address]: Emily Jorge : 1950 BED: DIS: 03/26/2023 SPEC #: [id number] RECD: 03/26/23 12:50 STATUS: [place]ICK REDk #: [id number] YUSRA: 03/26/23 08:[address]: Emily Jorge DEPT: Surgical Specimen RECD BY: Macy Ragsdale ENTERED: 03/26/23 12:50 SP TYPE: Bowel OTHR DR: Rimma Alvarez Tissues: 1 - BIOPSY BOWEL Procedures: GROSS AND MICRO LEVEL 4 Comments: [id number]
[2023-03-26 08:15] VITALS: BP 86/54; PULSE 63; RESP 16; TEMP 36; O2SAT 96
[2023-03-26 08:30] VITALS: BP 117/70
[2023-03-26 08:49] VITALS: BP 143/92; PULSE 55; RESP 16; TEMP 36.4; O2SAT 99
--- NOTE | 2023-03-26 09:22 | W.ANESPOSTOP ---
Postoperative Evaluation Date, Time and Location Date Performed: 03/26/23 Time Performed: 08:50 Patient Location: Day Surgery Unit Vital Signs Most Recent Imported Vital Signs: Most Recent Vital Signs Temp Pulse Resp BP Pulse Ox 36.4 C L 55 L 16 143/92 H 99 03/26/23 08:49 03/26/23 08:49 03/26/23 08:49 03/26/23 08:49 03/26/23 08:49 Pain Score Most Recent Pain Score: Most Recent Pain Score Pain Level 0 03/26/23 08:49 Assessment Mental Status: Awake (Alert & Oriented to Patient Baseline) Airway and Respiratory Function: Patent airway with normal (patient baseline) respiratory exam Cardiovascular Function: Hemodynamically Stable Hydration Status: Adequately Hydrated Nausea & Vomiting: No Nausea or Vomiting Pain: Pt. Denies Any Pain Peripheral Nerve Block: Patient did not receive a nerve block
== END 2023-03-26 09:15 | disposition home or self-care (01) ==
PROVIDERS: PCP Family Medicine; Visit Provider Surgery
PROC: 0DJD8ZZ Inspection of Lower Intestinal Tract, Via Natural or Artificial Opening Endoscopic (ICD-10-PCS; CPT 45378; principal; 2023-03-26 07:30)
DX: Z12.11 Encounter for screening for malignant neoplasm of colon (principal); Z86.010 Personal history of colon polyps; N18.31 Chronic kidney disease, stage 3a; K63.5 Polyp of colon
CPT/HCPCS: 45380; 88305

== ENCOUNTER 2023-06-02 09:39 | Outpatient (CLI) | payer MEDICARE, SELFPAY ==
[2023-06-02 13:21] LABS: TSH (W/Ref FT4) 0.63 uIU/mL (0.36-3.74)
== END 2023-06-02 09:40 | disposition home or self-care (01) ==
LOC: LOS 09:39
PROVIDERS: PCP Family Medicine; Referring Provider Family Medicine; Visit Provider Family Medicine
DX: E03.9 Hypothyroidism, unspecified (principal)
CPT/HCPCS: 36415; 84443

== ENCOUNTER 2024-06-28 02:34 | Outpatient (CLI) | payer MEDICARE, SELFPAY ==
[2024-06-28 12:56] LABS: Anion Gap 4.7 mmol/L (3-11); BUN 35 mg/dL (7-18); CO2 31.3 mmol/L (21.0-32.0); CREATININE 1.2 mg/dL (0.55-1.02); Calculated LDL 145 mg/dL (<100); Chloride 107 mmol/L (98-107); Cholesterol 245 mg/dL (<200); Estimated GFR 47.21 (mL/min/1.73m2); Glucose 83 mg/dL (74-106); HDL Cholesterol 91 mg/dL (40-60); Potassium 4.4 mmol/L (3.5-5.1); Sodium 143 mmol/L (136-145); TSH (W/Ref FT4) 0.95 uIU/mL (0.36-3.74); Triglyceride 47 mg/dL (<150); Vitamin D 25 Total 35.4 ng/mL (30-100)
== END 2024-06-28 02:35 | disposition home or self-care (01) ==
LOC: LOS 02:35
PROVIDERS: PCP Family Medicine; Visit Provider Family Medicine
DX: M81.0 Age-related osteoporosis without current pathological fracture (principal); Z13.6 Encounter for screening for cardiovascular disorders; N18.31 Chronic kidney disease, stage 3a; E03.9 Hypothyroidism, unspecified; I10 Essential (primary) hypertension
CPT/HCPCS: 36415; 80048; 80061; 82306; 84443

== ENCOUNTER 2024-08-29 01:09 | Outpatient (CLI) | payer MEDICARE, SELFPAY ==
[2024-08-29 12:39] LABS: Anion Gap 5.4 mmol/L (3-11); BUN 33 mg/dL (7-18); CO2 29.6 mmol/L (21.0-32.0); CREATININE 1.4 mg/dL (0.55-1.02); Chloride 106 mmol/L (98-107); Estimated GFR 39.23 (mL/min/1.73m2); Glucose 77 mg/dL (74-106); Potassium 4.3 mmol/L (3.5-5.1); Sodium 141 mmol/L (136-145)
== END 2024-08-29 01:10 | disposition home or self-care (01) ==
LOC: LOS 01:10
PROVIDERS: PCP Family Medicine; Visit Provider Family Medicine
DX: I10 Essential (primary) hypertension (principal); N18.31 Chronic kidney disease, stage 3a; E03.9 Hypothyroidism, unspecified; Z23 Encounter for immunization; H90.3 Sensorineural hearing loss, bilateral; L90.0 Lichen sclerosus et atrophicus
CPT/HCPCS: 36415; 80048

== ENCOUNTER 2024-09-28 11:16 | Outpatient (CLI) | payer MEDICARE, SELFPAY ==
--- NOTE | 2024-09-28 10:30 | DI.RAD_ITS ---
Exam(s) XR HIP LT COMPLETE AP PELVIS EXAM: XR HIP LT COMPLETE AP PELVIS CLINICAL HISTORY: left hip pain M70.62 TROCHANTERIC BURSITIS LT HIP R52 PAIN. TECHNIQUE: 2D digital imaging was performed. Three views. COMPARISON: CR RIGHT HIP COMPLETE from 03/27/2011 CR XR DEXA BONE DENSITY W/WO SIN from 08/03/2019 FINDINGS: BONES: No acute fracture is present. No bony destructive lesion is seen. Right hip prosthesis. Sev ere degenerative changes at L4-5. JOINTS: No dislocation present. The SI joints and pubic symphysis are intact. Moderate narrowing of the superior left hip joint space. Minimal periarticular spurring. SOFT TISSUE: Normal. IMPRESSION: Coie-dw-waoqwolv degenerative changes of the left hip. Right hip prosthesis. DATA REPOSITORY: RADIATION DOSE DELIVERED:
== END 2024-09-28 11:36 ==
LOC: DI 11:17
PROVIDERS: PCP Family Medicine; Visit Provider Family Medicine
DX: M70.62 Trochanteric bursitis, left hip (principal)
CPT/HCPCS: 73502

== ENCOUNTER 2024-10-25 13:37 | Outpatient (CLI) | payer MEDICARE, SELFPAY ==
--- NOTE | 2024-10-25 13:30 | RT.EKG_ITS ---
APPROVED REPORT Exam: Resting ECG Reason for Exam: hypotension, hypertension Patient Location: O HR:64 bpm ECG Measurements Heart Rate 64 AXIS DE 187 P 43 QRSd 96 QRS 34 QT 411 T 40 QTc 424 Conclusion Sinus rhythm...normal P axis, V-rate 50- 99 Normal Electrocardiogram
== END 2024-10-25 13:38 | disposition home or self-care (01) ==
LOC: DI.CM 13:38
PROVIDERS: PCP Family Medicine; Visit Provider Family Medicine
DX: I10 Essential (primary) hypertension (principal)
CPT/HCPCS: 93010

== ENCOUNTER 2024-11-15 02:34 | Outpatient (CLI) | payer MEDICARE, SELFPAY ==
--- NOTE | 2024-11-15 07:30 | DI.MRI_ITS ---
Exam(s) MR LOWER JOINT LT WO EXAM: MR LOWER JOINT LT WO CLINICAL HISTORY: SEVERE left groin (hip) pain, not improving with PT,R10.32 TECHNIQUE: Multiplanar multisequence MRI of left hip was performed COMPARISON: MR MRI - R LOWER EXT WO CONT from 04/22/2011 CR XR HIP LT COMPLETE AP PELVIS from 09/28/2024 FINDINGS: Bones: There is marrow edema seen in the left femoral head and neck. There is a linear area of decre ased signal intensity on the T1 weighted images beginning at the lateral aspect of the femoral neck s uspicious for a nondisplaced fracture. There does appear to be disruption of the cortex (series 6001, image 20). There is a small joint effusion. There is narrowing of the superior joint space and loss of articular cartilage. There is marrow edema seen at the articular surface of the superior acetabulu m. There is artifact from the patient's right total hip arthroplasty. The superior labrum appears to be decrease in volume which may represent degeneration. Musculotendinous structures: Musculotendinous structures demonstrate no abnormality. Intrapelvic str uctures demonstrate no significant abnormality. IMPRESSION: 1. There is a linear area of decreased signal intensity on the T1 weighted images in the lateral aspe ct of the left femoral neck suspicious for nondisplaced fracture. There is marrow edema seen in the h ead and neck of the femur. 2. There is a small joint effusion. 3. Degenerative changes are seen in the left hip. DATA REPOSITORY:
== END 2024-11-15 02:54 ==
LOC: DI 02:34
PROVIDERS: PCP Family Medicine; Visit Provider Family Medicine
DX: R10.32 Left lower quadrant pain (principal); M16.12 Unilateral primary osteoarthritis, left hip
CPT/HCPCS: 73721

== ENCOUNTER 2024-11-21 10:26 | Outpatient (CLI) | payer MEDICARE, SELFPAY ==
--- NOTE | 2024-11-21 08:30 | DI.RAD_ITS ---
Exam(s) XR HIP LT AP LAT ONLY EXAM: XR HIP LT AP LAT ONLY CLINICAL HISTORY: LEFT HIP PAIN. TECHNIQUE: 2D digital imaging was performed. Two views. COMPARISON: CR XR HIP LT COMPLETE AP PELVIS from 09/28/2024 MR MR LOWER JOINT LT WO from 11/15/2024 FINDINGS: BONES: No acute fracture is visible. No bony destructive lesion is seen. JOINTS: There is severe narrowing of the left superior hip joint space which has worsened when compar ed with the previous plain films. There is some sclerosis in the superior femoral head and adjacent acetabulum but no evidence of femoral head flattening. The SI joints and pubic symphysis are intact. SOFT TISSUE: Normal. IMPRESSION: Degenerative changes left hip with significant progression from the September examination. No fracture i s visible. No visible femoral head flattening. DATA REPOSITORY: RADIATION DOSE DELIVERED:
== END 2024-11-21 10:27 | disposition home or self-care (01) ==
LOC: DIORS 10:26
PROVIDERS: PCP Family Medicine; Referring Provider Family Medicine; Visit Provider Student in an Organized Health Care Education/Training Program
DX: S72.002A Fracture of unspecified part of neck of left femur, initial encounter for closed fracture (principal); W19.XXXA Unspecified fall, initial encounter; M16.12 Unilateral primary osteoarthritis, left hip; I10 Essential (primary) hypertension; N18.31 Chronic kidney disease, stage 3a
CPT/HCPCS: 99214; 73502

== ENCOUNTER 2024-11-23 02:21 | Outpatient (CLI) | payer MEDICARE, SELFPAY ==
--- NOTE | 2024-11-23 12:30 | DI.US_ITS ---
APPROVED REPORT EXAM: Comprehensive 2D, Doppler, and color-flow Echocardiogram Patient Location: Out-Patient Vinyl Installer: Humberto Morelos RDCS (AE) Indications: Hypotension, murmur Other Information Study Quality: Adequate Conclusion Normal left ventricular wall thickness and chamber size. Ejection fraction is 55%. Wall motion is n ormal Normal right ventricular size and function Left atrium is mildly dilated. Right atrial size is normal There are no structural valvular abnormalities Mild mitral regurgitation Ascending aorta measured at 3.57 cm Wall motion Left Ventricle The left ventricle is normal size. The left ventricular systolic function is normal. The left ventric ular ejection fraction is within the normal range. There is normal left ventricular wall thickness. T here is normal LV segmental wall motion. There is no ventricular septal defect visualized. LVEF is 55 %. Right Ventricle The right ventricle is normal size. The right ventricular systolic function is normal. Atria Left atrium is mildly dilated. The right atrium size is normal. The interatrial septum is intact with no evidence for an atrial septal defect. Aortic Valve Aortic valve is trileaflet Aortic valve is trileaflet. There is no aortic valvular stenosis. No aorti c regurgitation is present. Mitral Valve The mitral valve is normal in structure. No evidence of mitral valve stenosis. Mild mitral regurgita tion. Tricuspid Valve The tricuspid valve is normal in structure. There is no tricuspid valve stenosis. Trace tricuspid reg urgitation. Pulmonic Valve The pulmonary valve is normal in structure. There is no pulmonic valvular stenosis. Mild pulmonic reg urgitation. Great Vessels The aortic root is normal in size. The ascending aorta is mildly dilated. Aortic arch is normal in ca liber. IVC is normal in size and collapses >50% with inspiration. Pericardium There is no pericardial effusion. 2D Dimensions IVSD d PLAX 0.73 cm F: 0.6-1.0 Ao Root d 2.98 cm F: 2.7 - 3.3 LVPW d PLAX 0.67 cm F: 0.6 - 1.0 Ao Asc Diam d 3.57 cm F: 2.3 - 3.1 LVID d PLAX 4.91 cm F: 3.8 - 5.2 LVDs 3.64 cm F: 2.2 - 3.5 LV EF Teichholz 50.7 % FS 25.86 % LV EDV (Teich) 113.6 mL LV ESV (Teich) 56.0 mL Stroke Vol Index (Teich) 32.16 M-Mode TAPSE 2.67 cm (M/F) >1.7 Auto EF LV EDV A4C 107.8 mL LV EDV A2C 109.8 mL LV EDV BP 111.3 mL LV ESV A4C 56.6 mL LV ESV A2C 57.0 mL LV ESV BP 57.4 mL LVEF(%) A4C 47.5 % LVEF(%) A2C 48.1 % LVEF(%) BP 48.4 % LV SV A4C 51.2 ml LV SV A2C 52.8 ml LV SV BP 53.9 ml LV CO A4C 2.9 L/min LV CO A2C 3.1 L/min LV CO BP 3.0 L/min HR A4C 56.68 BPM HR A2C 58.16 BPM LV EDV Index (BP) LA Volume LA Length A4C 5.0 cm LA Length A2C 5.4 cm LA Area A4C s 16.50 cm2 LA Area A2C s 15.18 cm2 LA Vol A4C A-L 46.50 mL LA Vol A2C A-L 36.22 mL LA Vol Biplane A-L 42.8 mL LA Vol/BSA A4C A-L LA Vol/BSA A2C A-L LA Vol/BSA BP A-L 23.9 mL/m2 LA Vol A4C MOD 44.2 mL LA Vol A2C MOD 34.1 mL LA Vol BP MOD 40.4 mL RA Volume RA Area A4C 11.2 cm2 RA ESV A4C (A-L) 22.3mL RA Vol/BSA A4C A-L RA Length A4C 4.8 cm RA ESV A4C (MOD) 23.2mL LV Diastology MV E' medial 0.036 (>0.07 m/s) MV E Vmax 0.64 (0.4-1.3 m/s) MV E/E' MED 17.61 (<14) MV A Vmax 0.90 (0.4-1.3 m/s) MV E' lateral 0.066 (>0.1 m/s) E/A Ratio 0.7 MV E/E' LAT 9.76 (<14) MV E' Average 0.051 m/s MV E/E'(average) 12.56 Aortic Valve AoV Vmax 1.00 m/s LVOT Vmax 0.81 m/s AoV Peak Grad 4.0 mmHg LVOT Peak Grad 2.6 mmHg AoV Area (Vmax) 2.18 cm2 LVOT VTI 0.199 m AoV VTI 0.263 m LVOT Mean Grad 1.3 mmHg AoV Mean Vikram. 0.69 m/s LVOT SV 53.37 mL AoV Mean Grad 2.2 mmHg LVOT Diam s 1.80 cm AoV Area (VTI) 2.03 cm2 AV Regurg Peak Gr. 3.98 mmHg Velocity Ratio 0.81 Mitral Valve MV DT 197 (160-240 msec) MR Vmax 6.39 m/s MV Vmax TIPS 0.82 m/s MR VTI 2.863 m MV Mean Grad 1.0 (<2mmHg) MR Peak Grad 163.2 mmHg MV VTI 0.290 m MR Mean Grad 104.4 mmHg MR PISA Radius 0.41 cm MR Aliasing Velocity 0.30 m/s Pulmonary Valve PV Vmax 0.73 (0.5-1.5 m/s) RVOT Vmax 0.48 m/s PV Peak Grad 2.1 mmHg RVOT Peak Gr. 0.9 mmHg PV Mean Vikrma 0.49 m/s RVOT VTI 0.107 m PV Mean Grad 1.1 mmHg RVOT Mean Gr. 0.5 mmHg Tricuspid Valve TV S' 0.12 m/s
== END 2024-11-23 02:41 ==
LOC: DI 02:22
PROVIDERS: PCP Family Medicine; Visit Provider Internal Medicine Cardiovascular Disease
DX: R01.1 Cardiac murmur, unspecified (principal); I95.1 Orthostatic hypotension; I34.2 Nonrheumatic mitral (valve) stenosis
CPT/HCPCS: 93306

== ENCOUNTER → 2024-12-11 09:26 | Outpatient (BNVA) | payer MEDICARE, SELFPAY | PROVIDERS: PCP Family Medicine; Referring Provider Family Medicine; Visit Provider Student in an Organized Health Care Education/Training Program | DX: M16.12 Unilateral primary osteoarthritis, left hip (principal) | CPT/HCPCS: 99214 ==

== ENCOUNTER 2024-12-25 04:15 | Outpatient (CLI) | payer MEDICARE, SELFPAY ==
[2024-12-25 10:03] LABS: HCT 37.4 % (36.0-46.0); MCHC 32.1 % (32.0-36.0); MCV 90 fL (80-95); MPV 9.9 fL (8.0-11.0); Platelet Count 223 10^3/uL (130-400); RBC 4.14 10^6/uL (3.93-5.22); RDW-SD 43.2 fL; WBC 5.53 10^3/uL (4.4-10.8)
[2024-12-25 11:25] LABS: Anion Gap 7.4 mmol/L (3-11); BUN 30 mg/dL (7-18); CO2 30.6 mmol/L (21.0-32.0); CREATININE 1.1 mg/dL (0.55-1.02); Calcium 9.2 mg/dL (8.5-10.1); Chloride 104 mmol/L (98-107); Estimated GFR 52.08 (mL/min/1.73m2); Glucose 92 mg/dL (74-106); Potassium 4.3 mmol/L (3.5-5.1); Sodium 142 mmol/L (136-145)
== END 2024-12-25 04:16 | disposition home or self-care (01) ==
PROVIDERS: PCP Family Medicine; Visit Provider Student in an Organized Health Care Education/Training Program
DX: M16.12 Unilateral primary osteoarthritis, left hip (principal); Z01.818 Encounter for other preprocedural examination
CPT/HCPCS: 36415; 80048; 85027

== ENCOUNTER 2025-01-02 16:42 | Observation (INO) | payer MEDICARE, SELFPAY ==
[2025-01-02] VITALS (23 sets, daily range): BP systolic 101–162; BP diastolic 58–83; PULSE 55–78; RESP 10–24; TEMP 36.1–36.6; O2SAT 95–99; BMI 27.7
--- NOTE | 2025-01-02 | DI.RAD_ITS ---
Exam(s) XR HIP LT 1V EXAM: XR HIP LT 1V CLINICAL HISTORY: left hip pain, quad spasms. TECHNIQUE: 2D digital imaging was performed. COMPARISON: CR XR HIP LT AP LAT ONLY from 11/21/2024 FINDINGS: Single AP postop portable view of the left hip Satisfactory position of the components of the prosthesis. No fracture or loosening evident IMPRESSION: Satisfactory postop appearance. DATA REPOSITORY: RADIATION DOSE DELIVERED:
[2025-01-02] MEDS: Lactated Ringers 1,000 ML 80 ML IV (06:50)
[2025-01-02] MEDS: Acetaminophen 500 MG TAB 1000 MG PO ×3 (06:50→20:14)
[2025-01-02] MEDS: Celecoxib 200 MG CAP 400 MG PO (06:50)
--- NOTE | 2025-01-02 06:50 | ANES.PREOP_ITS ---
General Info Date of Service Date Performed: 01/02/25 Height: 5 ft 3.5 in Weight: 72.121 kg Body Mass Index (BMI): 27.7 Surgical Procedure: Operation Date: 01/02/25 07:50 Proposed Procedure Side Surgeon p Hip Total Hip Anterior, Corail Left Alverto Sung MD Meds Allergies and Home Medications Allergies Allergy/AdvReac Type Severity Reaction Status Date / Time No Known Allergies Allergy Verified 01/02/25 06:32 Home Medication ?Medication ?Instructions ?Recorded clobetasol 0.05 % topical ointment 1 applic vaginal BID PRN #60 grams 05/29/22 levothyroxine 112 mcg tablet 112 mcg PO DAILY #90 tabs 05/24/24 calcium 333.33 mg-vit D3 6.67 1 tab PO DAILY 06/26/24 mcg-magnes 32 mg-vit K2-min-herb tablet atorvastatin 40 mg tablet 40 mg PO QHS #90 tabs 07/03/24 acetaminophen 500 mg tablet 1,000 mg (2 x 500 mg) PO Q8H PRN 01/02/25 pain #90 tabs aspirin 81 mg tablet,delayed 81 mg PO BID 30 days #60 tabs 01/02/25 release celecoxib 200 mg capsule (Celebrex) 200 mg PO BID PRN #60 caps 01/02/25 dexamethasone 4 mg tablet 4 mg PO DAILY #2 tabs 01/02/25 docusate sodium 100 mg capsule 100 mg PO BID #28 caps 01/02/25 (Colace) oxycodone 5 mg tablet 5 mg PO Q6H PRN #12 tabs 01/02/25 pantoprazole 40 mg tablet,delayed 40 mg PO DAILY #14 tabs 01/02/25 release Current Visit Medications: Current Medications Generic Name Dose Route Start Last Admin Trade Name Freq PRN Reason Stop Dose Admin Acetaminophen 1,000 mg 01/02/25 06:00 Acetaminophen 500 Mg Tab PO 01/02/25 23:59 PREOP KANE Celecoxib 400 mg 01/02/25 06:00 Celecoxib 200 Mg Cap PO 01/02/25 23:59 PREOP KANE Ringer's Solution 1,000 mls @ 80 mls/hr 01/02/25 06:00 IV 01/02/25 23:59 INFUSION [facility] Cefazolin Sodium/Dextrose 2 gm in 50 mls @ 100 mls/hr 01/02/25 06:00 Ancef Duplex IVPB 01/02/25 23:59 PREOP KANE Tranexamic Acid/Sodium Chloride 1,000 mg in 100 mls @ 600 mls/hr 01/02/25 06:00 IVPB 01/02/25 23:59 PREOP KANE IV Miscellaneous Supplies 1 each 01/02/25 06:00 Iv Access IV 01/02/25 23:59 DIRECTED KANE Sodium Chloride 0 ml 01/02/25 06:00 Normal Saline Flush 10 Ml Syr IV 01/02/25 23:59 PRN PRN Sodium Chloride 0 ml 01/02/25 06:00 Normal Saline 10 Ml Vial IJ 01/02/25 23:59 DIRECTED PRN Sterile Water 0 ml 01/02/25 06:00 Water,Injection,Sterile 10 Ml Vial IJ 01/02/25 23:59 DIRECTED PRN PFSH Active Problems Active Problems: Problem Status Onset Code Arthritis of left hip Acute M16.12 Severe left groin pain Acute R10.32 Essential hypertension Acute I10 Bilateral sensorineural hearing loss Acute H90.3 Orthostatic hypotension Chronic I95.1 CKD stage G3a/A1, GFR 45-59 and albumin creatinine ratio <30 mg/g Acute N18.31 Varicose veins of lower extremity Acute I83.90 Stress incontinence of urine Acute 05/13/17 N39.3 Osteoporosis Chronic M81.0 Osteoarthritis Acute 06/28/12 M19.90 Lichen sclerosus et atrophicus Acute L90.0 Hypothyroidism Acute 02/21/13 E03.9 Medical History Medical History 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 Managed by [facility]. Basal cell carcinoma of skin (03/25/12) Polyp of colon Hyperplastic polyp 2022 [place] of left macula Surgical History Surgical History History of colonoscopy (~03/2023) History of hip replacement History of cataract surgery Status post left breast lumpectomy S/P left knee arthroscopy Status post hip replacement (R) Status post cataract extraction and insertion of intraocular lens of left eye (05/30/18) Tobacco Smoking/Tobacco Use Status: Never Passive smoking exposure: No Second hand exposure: Yes Alcohol Alcohol Intake: current Alcohol intake frequency: a few times a week Alcohol type: beer, wine and hard liquor Substance Use Substance use: Never Substance use type: does not use Vital Signs and Lab Results Vital Signs Most Recent Vital Signs in EMR: Most Recent Vital Signs Temp Pulse Resp BP Pulse Ox 36.6 C 75 20 130/79 98 01/02/25 06:20 01/02/25 06:20 01/02/25 06:20 01/02/25 06:20 01/02/25 06:20 Lab Results Blood Type / Crossmatch: No Data to Display Complete Blood Count: White Blood Count 5.53 10^3/uL (4.4-10.8) 12/25/24 09:57 Red Blood Count 4.14 10^6/uL (3.93-5.22) 12/25/24 09:57 Hemoglobin 12.0 g/dL (11.2-15.7) 12/25/24 09:57 Hematocrit 37.4 % (36.0-46.0) 12/25/24 09:57 Platelet Count 223 10^3/uL (130-400) 12/25/24 09:57 Complete Metabolic Panel: Sodium 142 mmol/L (136-145) 12/25/24 09:57 Potassium 4.3 mmol/L (3.5-5.1) 12/25/24 09:57 Chloride 104 mmol/L (98-107) 12/25/24 09:57 Carbon Dioxide 30.6 mmol/L (21.0-32.0) 12/25/24 09:57 BUN 30 mg/dL (7-18) H 12/25/24 09:57 Creatinine 1.1 mg/dL (0.55-1.02) H 12/25/24 09:57 Est GFR (CKD-EPI 2020) 52.08 (mL/min/1.73m2) 12/25/24 09:57 Calcium 9.2 mg/dL (8.5-10.1) 12/25/24 09:57 Glucose 92 mg/dL (74-106) 12/25/24 09:57 Liver Function Panel: No Data to Display Coagulation Panel: No Data to Display Cardiac Panel: No Data to Display Arterial Blood Gas: No Data to Display Venous Blood Gas: No Data to Display Pancreas Panel: No Data to Display Thyroid Panel: No Data to Display Infectious Disease: No Data to Display Blood Cultures: No Data to Display Toxicology Panel: No Data to Display Imaging and Studies Imaging and Studies Study information below may be from another EMR and interpreted by another provider. Please see original notes in EMR for more complete details. EKG Summary: DATE/TIME OF SERVICE: 03/28/21 1202 : 1950PERFORMING LOCATION: [facility] APPROVED REPORT Exam: Resting ECG Reason for Exam: near syncope Patient Location: O HR:59 bpm ECG Measurements Heart Rate 59 AXIS MD 179 P 53 QRSd 92 QRS 28 QT 424 T41 QTc 420 Conclusion Sinus bradycardia...rate< 60 Stress Test Summary: 04/07/2021:Stress ECG Conclusion 1. The patient exercised for 9 minutes and 35 seconds (11 METS). Exercise was stopped due to fatigue. 2. Patient had no symptoms suggestive of ischemia 3. There is no evidence of ischemia on the ECG portion of the exam. [place] Treadmill Score is 9.3 which is Low risk. Anesthesia Assessment and Plan Anesthesia History Personal History: No History of Anesthesia Complications Family History: No Family History of Anesthesia Complications Exercise Tolerance Exercise Tolerance: Metabolic Equivalents>4 Pertinent Negatives Pertinent Negatives: No Symptoms of GERD, No Major Cardiovascular Symptoms or Complaints, No Major Pulmonary Symptoms or Complaints and No History of CVA/TIA Cardiac & Pulmonary Exam Cardiac Exam: Normal S1/S2 Heart Sounds and Known Innocent Murmur Pulmonary Exam: Clear Bilateral Breath Sounds and No cough or Cold Implantable Cardiac Device Does patient have a Pacemaker or an ICD?: No Airway Exam Known Difficult Airway: No Mallampati Class: 2 Mouth Opening: Normal (> 3cm) Thyromental Distance: Less than 3 cm Neck Range of Motion: Full ROM Neck Circumference: Normal Teeth Condition: Normal Dentition ASA Classification ASA Score: ASA 2 Emergency Case?: No NPO Status NPO Status: NPO Clears >2 hours, Solids >8 hours Anesthesia Plan Resuscitation Status: Full Code Anesthesia Technique: Spinal Anesthesia Airway Planned: Natural Airway Monitors Used: Standard Monitors
--- NOTE | 2025-01-02 07:12 | PDOC.DSDIS_ITS ---
Date of service: 01/02/25 Discharge Plan Disposition Patient Disposition: Home Condition: Good Discharge Details Reason For Visit: Left hip DJD Attending Provider: Alverto Sung Primary Care Provider: Rimma Alvarez Home Meds and New Rx's Prescriptions: New celecoxib [Celebrex] 200 mg capsule 200 mg PO BID PRNQty: 60 0RF Rx Instructions: Take one tablet twice daily for pain and inflammation aspirin 81 mg tablet,delayed release (DR/EC) 81 mg PO BID 30 Days Qty: 60 0RF acetaminophen 500 mg tablet 1,000 mg PO Q8H PRN Qty: 90 0RF Rx Instructions: Take two tablets up to every 8 hours as needed for pain pantoprazole 40 mg tablet,delayed release (DR/EC) 40 mg PO DAILY Qty: 14 0RF dexamethasone 4 mg tablet 4 mg PO DAILY Qty: 2 0RF Rx Instructions: Take one tablet once daily for two days docusate sodium [Colace] 100 mg capsule 100 mg PO BID Qty: 28 0RF oxycodone 5 mg tablet 5 mg PO Q6H PRNQty: 12 0RF Rx Instructions: Take one tablet up to every 6 hours as needed for severe postoperative pain Continued clobetasol 0.05 % ointment 1 applic VG BID PRN Qty: 60 0RF levothyroxine 112 mcg tablet 112 mcg PO DAILY Qty: 90 3RF benoit-vit U6-gvt-U7-min-herb 326 333.33 mg-6.67 mcg-32 mg tablet 1 tab PO DAILY atorvastatin 40 mg tablet 40 mg PO QHS Qty: 90 3RF Discontinued acetaminophen 500 MG tablet 1 - 2 tab PO BID PRN Discharge Instructions Additional Instructions: Total Hip Discharge Instructions Activity: The most important activity is to walk. You should try to take short walks a few times a day. You have no restrictions on movement or positioning, but do not try to force what you do. You will find some stiffness and weakness with hip flexion (lifting your knee). Do not try to strengthen this too early, continue to practice walking and stairs and this will come. - Outpatient physical therapy can be helpful to help return you to a normal gait and improve your flexibility and strength. This can start around 2 weeks. For some patients, it?s not necessary. Usually this is determined at the time of discharge or at the first post-operative visit. - You should wear the GABI hose on both legs for 2 weeks. Dressing: Keep the surgical dressing in place for at least one week. After the first week it may be removed and replace with light gauze and tape or nothing. It may get wet after 3 days but avoid soaking the dressing. If it gets wet, just lightly pat dry. It is important to always keep some gauze between skin folds, especially when you are sitting. Spend some time with the wound exposed when you are lying flat as the incision does wrinkle onto itself. Medications: - You should take Tylenol and an anti-inflammatory Celebrex as your primary pain control medications. If the Celebrex is too expensive or not covered, please call the office for another alternative (Advil/Ibuprofen or Naproxen/Aleve). - You have been prescribed a stronger pain medication Oxycodone for breakthrough pain, take as needed as prescribed. - You have also been prescribed a stomach acid reduction agent Pantoprozole to help reduce stomach acid and reflux. - You have also been prescribed Decadron to help with post-operative nausea and pain. You will take this for two days starting tomorrow. - You will be taking Aspirin 81mg twice a day for DVT prevention unless instructed otherwise. - If you have constipation you should take Colace (which has been prescribed) or Miralax (which is available [id number]). It takes most people 3-4 days to have a bowel movement. Follow-up: 2 weeks If you have any acute concerns or questions, please do not hesitate to contact the office at [phone]. You may contact Dr. Sung with any questions after hours through the hospital at [phone] or on his cell phone at [phone]. Stand Alone Forms: Anesthesia Discharge Inst., Anes.Nerve Block Instructions, Phil Castillo (DSU) Referrals: Alverto Sung MD [ [facility] STAFF PHYSICIAN] - 01/15/25 10:15 am Equipment/Supplies: Walker Activity:: Elevate Remove Dressings/Wound Care:: Do Not Remove Shower/Bathe:: Cover Diet:: As Tolerated
[2025-01-02] MEDS: ceFAZolin 2 GM/50 ML BAG IVPB (07:56)
[2025-01-02] MEDS: TRANEXAMIC ACID/SOD. CHL. 1,000 MG/100 ML BAG 600 MG IVPB (08:02)
--- NOTE | 2025-01-02 09:00 | DI.RAD_ITS ---
Exam(s) XR HIP LT IN OR EXAM: XR HIP LT IN OR CLINICAL HISTORY: Arthritis of left hip. TECHNIQUE: 2D digital imaging was performed. COMPARISON: No exams were available for comparison FINDINGS: Fluoroscopy was provided during hip arthroplasty. See procedure report for details. Total fluoroscopy time 23.3 seconds IMPRESSION: Radiation exposure index/cumulative dose:flakito Akers= 1.8050 mGy DATA REPOSITORY: RADIATION DOSE DELIVERED:
--- NOTE | 2025-01-02 09:16 | W.PM.OP ---
Operative Note Operative Note PRE-OP DIAGNOSIS: Hip Osteoarthritis POST-OP DIAGNOSIS: same PROCEDURE: [Right][Left] Anterior Total Hip Arthroplasty with Intraoperative Navigation SURGEON: Alverto Sung DIESEL FLEET MECHANIC: Emily Judd ANESTHESIA TYPE: Spinal Refer to Anesthesia Record ESTIMATED BLOOD LOSS: 200 PATHOLOGY: none sent TOURNIQUET TIME: 0 COMPLICATIONS: None Patient was transported to: PACU Patient's condition: stable Implants: 1. Depuy [place] Acetabular Component, 52mm 2. Depuy Acetabular Liner, [id number] 3. Depuy Actis Standard Collared Femoral Stem, Size 7 4. Depuy Altrx Ceramic Femoral Head, Size 36+5mm Indications: I have seen Jorge L in clinic for symptoms of hip arthritis, confirmed with radiographic findings. She has exhausted nonoperative methods and was having significant limitations in daily function and desired better function and less pain. I discussed the technical details of a hip replacement. I explained the risks of the procedure to include, but not limited to, bleeding, infection, pain, stiffness, fracture, damage to nerves and vessels, damage to muscles and tendons, loosening, instability, leg length inequality, need for repeat procedure, blood clot and cardiopulmonary demise. Despite these risks, Jorge L elected to proceed. Findings: There was significant signs of arthritis throughout the hip with an area of compressed and settled superior femoral head. Procedure Description: Jorge L was greeted in the preoperative holding area where the correct side was identified and marked. The consent was reviewed with the patient and signed. The history and physical was updated. All questions were answered. She was taken back to the operating room. A spinal anesthestic was then administered. The feet were wrapped with cast padding and Coban and then placed into the boot liners and then into the boots. Care was taken to protect the skin and make sure the heels were fully down and the boots were stable. The patient was then positioned onto the HANA table. Both legs were held in a neutral position. SCDs were applied. The patient was then slid down onto a peroneal post. Prophylactic antibiotics in the form of Cefazolin were administered. 1g of Tranxemic Acid was given intravenously within 30 minutes of incision. The left leg was then prepped with Chloraprep and draped in a standard fashion. A second prep with Chloraprep was performed prior to placement of a shower-curtain type drape with Iodine impregnated skin protection. A timeout to confirm correct identity, side and site, procedure, allergies, anesthesia, and medical concerns was performed. An obliquely oriented incision was made starting lateral to the ASIS and running distal over the Tensor Fascia Yisel (TFL) muscle belly toward the fibular head, approximately 10cm. The skin and soft tissue was dissected sharply, through Nevaeh?s fascia, and to the fascia of the TFL. With the fascia and superior border of the IT band identified, the fascia was incised with a new knife just above any perforators from the IT band. The TFL muscle belly was bluntly dissected away from the fascia and moved laterally. The fat between TFL and rectus was identified to ensure the dissection was not within the TFL. Blunt dissection created space between abductors and the capsule and retractor was placed over the lateral femoral neck. The fibers of the rectus femoris tendon were identified and these were freed from the anterior capsule. A second cobra retractor was placed around the medial femoral neck. The TFL was further retracted laterally to show the deep fascia. Careful dissection through this layer identified three main crossing vessels of the lateral femoral circumflex. These were cauterized in multiple locations and then cut without any noticeable bleeding. The TFL was further released bluntly from the deep fascia to expose anterior hip capsule and fat The soft tissue orthopaedic retractor was then placed beneath the TFL and against sartorius and medial soft tissues to protect and retract the soft tissues. A T-capsulotomy was then performed starting at the superior lateral acetabulum and moving distally to the intertrochanteric ridge. These capsular flaps were tagged with a No. 1 Vicryl and elevated from within. The capsular flaps were released to the shoulder of the lateral neck and to the lesser trochanter to give excellent visualization of the proximal femur. A neck osteotomy was performed using an oscillating saw based on preoperative templates. This cut started in the shoulder and of the lateral neck and exited medially. The saw was at all times directed medially to avoid injury to the greater trochanter. Gross traction was applied to the leg and the osteotomy opened. The femoral head was removed with a corkscrew, making sure to protect the TFL on its exit. Traction was released after head removal. This was measured on the back table to determine the starting reamer size. There was a notable area of depression and likely necrotic bone of the superior weight bearing portion of the femoral head. Portions of the rectus obscuring visualization were minimally elevated off the superior acetabulum. An anterior retractor was placed over the anterior wall between capsule and labrum and attached to the Gripper retraction system. The femur was rotated to 90 degrees and medial capsule was fully released until the lesser trochanter was palpable and visible; the femur was returned to 30 degrees. A posterior retractor was placed similarly between capsule and labrum. This provided excellent visualization. The contents of the cotyloid fossa were removed with electrocautery and the labrum was removed with a knife. There was a notable floor osteophyte. There was significant chondromalacia of the superior acetabulum. Acetabular reaming began with a 48mm reamer. This first reaming was directed anterior to posterior and medial to get down to the true floor. This was inspected and reamed until the true floor was reached. The anterior retractor was then released and entry and exit was provided by traction on the capsular flaps. I then reamed sequentially up to a 52mm reamer where good fit was obtained. The larger reamers were oriented based on anatomical reference of the anterior and lateral torres to ensure proper abduction and anteversion. Positioning and size was confirmed with the fluoroscopy. A 52mm Depuy [place] acetabular component was selected. The acetabulum was reamed around the periphery with the selected acetabular size to prevent a rim fit. The deep tissues were irrigated. The acetabular component was then impacted in a position of about 40-45 degrees of abduction and 15-20 degrees of anteversion, using the patient?s anatomy as the ultimate landmark. Fluoroscopy was used to confirm this. There was excellent distribution center supervisor of the acetabular component and the inserting handle was removed. The acetabular liner, Depuy [id number] polyethylene liner, was inserted and lined up with the tines of the acetabular component. There was no soft tissue interposition. The liner was then impacted into position and confirmed to be well-seated. A portion of the janeen-articular cocktail was then injected around the acetabulum into the capsule and periosteum. This cocktail consisted of 123mg of Ropivacaine, 0.25mg of Epinephrine, 0.04mg of Clonidine, and 15mg of Ketorolac, diluted to 50cc. The leg was rotated to 120 degrees. Any remaining medial capsule was released until the lesser trochanter was easily palpable. A retractor was placed medially. The lateral capsule was further released into the shoulder to allow access to the greater trochanter. A Huizar retractor was placed over the greater trochanter which allowed the trochanter to flip in front of the capsule for excellent exposure. The leg was brought down into maximal extension and 20 degrees of adduction while ensuring there was no impingement on the acetabulum. Any remnant capsule within the trochanter was released. Piriformis and obturator externis were identified and protected. There was excellent access to the proximal femur. The lateral neck remnant was removed with a rongeur. A blunt canal probe was used to identify the canal and trajectory for later broaching. A box osteotome initiated the broach course. A small curved rasp and a curved curette were used to work laterally. Broaching then began with a starter Actis broach. This was inserted manually around the trochanter and into the canal before mallet blows. The broach was seated to the neck cut level based on the neck cut and the preoperative template. Sequential broaching was continued with the [employer] pneumatic broaching device until a tight fit was obtained with good rotational control of the femur. A trial standard neck was inserted along with a +5 trial head. The leg was brought out of extension and adduction and then reduced with traction and internal rotation. The leg was stable anteriorly in a position of 30 degrees of extension and 90 degrees of external rotation. Fluoroscopy was used to ensure there was no fracture and the stem was seated well. Leg lengths were checked with an AP pelvis and pelvic reference points. Xunlei navigation system was used to confirm appropriate positioning and leg length and offset. The stem was advanced 5mm to match leg length. Once content with the desired offset and leg lengths, the leg was brought back into extension, external rotation and adduction. The periosteum and surrounding tissue was injected with remaining portion of the janeen-articular cocktail. The proximal femur was irrigated as well as the deep tissues. The [place] Actis standard collared stem, size 7, was then manually inserted into the proximal femur making sure to control rotation. It was then malleted into position with light blows, giving breaks to allow bone expansion and decrease risk of fracture. The selected Depuy Altrx Ceramic Head, size 36+5mm, was then placed onto the clean and dry trunnion and secured with impaction onto the tapered fit. The leg was brought back out of extension and adduction and reduced with traction and internal rotation. Stability was confirmed with no shuck at 90 degrees of external rotation and 30 degrees of extension. No impingement through range of motion arc. Final x-ray images were obtained with fluoroscopy to confirm adequate positioning and no intraoperative fracture. The deep tissues were thoroughly irrigated with Surgiphor, betadine solution. This was allowed to sit in the wound for 3 minutes before being thoroughly irrigated out with normal saline. The capsule was then reapproximated with the previously placed sutures and the indirect head of the rectus was inspected and reapproximated with a #1 Vicryl. The TFL fascia was finally closed with a No. 2 Stratafix, barbed suture. Deep tissues were then reapproximated with 0 Vicryl and a running 2-0 Vicryl. The skin was closed with a running 4-0 Monocryl in a subcuticular fashion. This was reinforced with skin glue. A Mepilex silver dressing was applied. At the end of the case, all counts were correct. Jorge L was transferred to the hospital bed without difficulty and suffering no apparent complication. She has a good prognosis. Physical therapy will start today and without restrictions, weight-bearing as tolerated. Aspirin 81mg BID will be used for DVT prophylaxis. Date of Procedure: 01/02/25
[2025-01-02] MEDS: oxyCODONE 5 MG TAB PO ×2 (10:13→15:24)
[2025-01-02] MEDS: Tranexamic Acid 650 MG TAB 1300 MG PO (11:21)
--- NOTE | 2025-01-02 13:48 | W.ANESPOSTOP ---
Postoperative Evaluation Date, Time and Location Date Performed: 01/02/25 Time Performed: 13:48 Patient Location: Day Surgery Unit Vital Signs Most Recent Imported Vital Signs: Most Recent Vital Signs Temp Pulse Resp BP Pulse Ox 36.1 C L 67 16 130/60 95 01/02/25 11:22 01/02/25 11:22 01/02/25 11:22 01/02/25 11:22 01/02/25 11:22 Pain Score Most Recent Pain Score: Most Recent Pain Score Pain Level 3 01/02/25 11:22 Assessment Mental Status: Awake (Alert & Oriented to Patient Baseline) Airway and Respiratory Function: Patent airway with normal (patient baseline) respiratory exam Cardiovascular Function: Hemodynamically Stable Hydration Status: Adequately Hydrated Nausea & Vomiting: No Nausea or Vomiting Pain: Pain is Moderate or Severe Postoperative Pain Management: Pain being addressed with medication (Quad spasming, Methocarbomal ordered. ) Peripheral Nerve Block: Patient did not receive a nerve block
[2025-01-02] MEDS: Methocarbamol 500 MG TAB 1000 MG PO ×2 (14:03→22:03)
[2025-01-02] MEDS: Normal Saline Flush 10 ML SYR IV (14:08)
--- NOTE | 2025-01-02 14:08 | PT.INIE ---
PT Notes Visit Reasons: Left hip DJD Physical Therapy Day Surgery Initial Evaluation Date: 01/03/2020 2200 Referring Doctor: Emily Judd PT Orders: PT CONSULT: Status post Ortho surgery Precautions: Weightbearing as tolerated left lower extremity Patient Profile/Admitting Diagnosis: Bettina Valverde is a 74-year-old female presenting status post elective left ANNA secondary to osteoarthritis. Postop complicated by muscle spasms and pain. Post op xray confirms good alignment of prosthesis with no fracture . MD in to assess pt . Pt to be admitted for further monitoring. PMHX: Arthritis of left hip (Acute) Severe left groin pain (Acute) Essential hypertension (Acute) Bilateral sensorineural hearing loss (Acute) Hypothyroidism (Acute 02/21/13) Lichen sclerosus et atrophicus (Acute) Osteoarthritis (Acute 06/28/12) Osteoporosis (Chronic) forearm; unable to tolerate alendronate in tress incontinence of urine (Acute 05/13/17) Varicose veins of lower extremity (Acute) CKD stage G3a/A1, GFR 45-59 and albumin creatinine ratio <30 mg/g (Acute) Orthostatic hypotension (Chronic) Making adaptations, declines meds at present. 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 Managed by [facility].Basal cell carcinoma of skin (03/25/12) Polyp of colon Hyperplastic polyp rusen of left macula Surgical History (Updated 03/26/23 @ 13:46 by Karol Martin) History of colonoscopy (~03/2023) History of hip replacement History of cataract surgery Status post left breast lumpectomy S/P left knee arthroscopy Status post hip replacement Status post cataract extraction and insertion of intraocular lens of left eye (05/30/18) Social History/Home Situation: Patient resides with in two-story home 3 steps to enter with right rail. Flight of stairs with right rail to main bedroom and bathroom however patient will be staying on the first floor. Patient independent ambulation without assistive device, independent ADLs, home management, meal prep, driving, shopping. Patient very active playing golf and pickleball. Equipment Owned/DME: Patient fitted for and issued FWW from [facility] Subjective: Patient reports spasms in left quad limiting her ability to move her leg. Patient reports 3 weeks prior to surgery she was walking with crutches at a nonweightbearing level due to similar episode of spasms. Patient reports this resolved and she was able to walk into hospital without spasms present. Objective: [] General Observation: Female semireclined on stretcher ice to left lateral hip warm towels to left thigh. Has been visiting Mental Status: Alert and oriented x 4, able to follow instructions, cooperative and pleasant. Patient agreeable to participate in assessment Pain: 5?6 pain when she has a spasm increasing to 10 with needle like sensation shooting up her leg when she tightens her thigh muscle/activates quad ROM: [] Right Upper Extremity: WNL Left Upper Extremity: WNL Right Lower Extremity: WNL Left Lower Extremity: Passive hip flexion to 95 degrees, abduction 5 degrees, internal rotation to neutral. Patient lacking approximately 5 degrees of hip extension from neutral due to quad spasms. Knee and ankle within normal limits Strength: [] Right Upper Extremity: 5/5 Left Upper Extremity: 5/5 Right Lower Extremity: 5/5 Left Lower Extremity: Hip flexors 2 -/5, abductor 2 -/5, abductor 2/5 extensor 2+/5, knee extensor 2+/5, knee flexor 2+/5 ankle plantar flexors 3/5, ankle dorsiflexors 3/5. Patient limited by quad spasms with all motion of hip and knee Sensation: Intact light touch deep pressure and pain throughout left lower extremity Bed Mobility/Transfers: [] Supine to sit min assist Sit to stand contact-guard assist Stand to sit contact-guard assist and cues to bring left lower extremity forward prior to sitting cues for hand placement as well Bed to chair; step turn with FWW min assist and continuous cues for sequencing Chair to from commode : step turn TTWB LLE with FWW min A (+) buckling B knees when WB on LLE d/t pain Gait: unable B knees buckling d/t pain Balance: [] Static Sitting: Normal Dynamic Sitting: Fair minus limited by left quad spasm Static Standing: Fair minus with FWW Dynamic Standing: Poor with FWW Special Tests: [] Mobility Limitations Standardized Measure [] [facility] AM-PAC 6 clicks Basic Mobility Inpatient Short Form: [] Raw Score: [] CMS Score: [] Informed Consent/Education: Patient instructed in purpose of PT consult. Packet containing ANNA exercise protocol has been given to patient. Education and training on initial set of exercises that can be done at home have been completed with patient. Pt difficulty performing marching , heelslides , quad sets d/t pain and spasms. Assessment: Patient is 74-year-old female presenting with significant quad spasms postop left ANNA surgery. Spasms limit her ability to perform ambulation with FWW. Patient unable to tolerate weightbearing through left lower extremity without activation of spasm in quad. Patient presents with clinical signs and symptoms consistent with current/admitting diagnoses that have resulted to mobility limitations, gait instability, generalized weakness, and impairment of motor control as demonstrated by the following impairment level findings: 1. Decreased strength to left hip major muscle groups 2. Impaired standing balance 3. Limitation of joint range of motion in left hip 4. Pain/spasm left hip/ anterior thigh 5. Impaired functional activity tolerance 6. Inability to tolerate WB on LLE Impairments are contributing to the following functional limitations: 1. Inability to safely ambulate without assistive device 2. Increase completion time for mobility ADL performance 3. Increased fall risk 4. Difficulty performing stairs safely without assistance 5. Impaired transfer skills including bed mobility Patient is assessed as a moderate complexity based on the following: History: 74-year-old female with impairment level findings, functional limitations, and past medical history as indicated above Examination: Demonstrable impairment in strength, balance, and mobility level with underlying impairments and functional limitations as documented above Presentation: Evolving Decision Making: Moderate Goals: 1. Supervision bed mobility 2. Supervision transfers with FWW 3. Supervision ambulating with FWW greater than 50 feet x 2 4. Supervision 3 steps with right rail to safely enter and exit home 5. Independent home exercise program per ANNA protocol Plan of Care/Treatment Plan: PT evaluation and 1-2 treatment session only for functional mobility training using recommended AD and for HEP instruction. DISCHARGE RECOMMENDATIONS: Home with HEP and use of FWW patient may benefit from HH PT if limited progress TREATMENT CODE/TIME: 36312, [id number], [id number] Thank you for the opportunity to participate in the care of this patient. Maylin Sánchez, PT [facility]
[2025-01-02] MEDS: ceFAZolin 1 GM/50 ML BAG IVPB ×2 (14:09→21:33)
--- NOTE | 2025-01-02 17:45 | W.PC.ACHO ---
Registration Status: Primary Language: Preferred Language: Medical / Surgical History (Last Reviewed 01/02/25 @ 06:40 by Radha Pryor) Ductal carcinoma in situ (DCIS) of left breast (~2018) Basal cell carcinoma of skin (03/25/12) Polyp of colon [place] of left macula (Last Reviewed 01/02/25 @ 06:40 by Radha Pryor) History of colonoscopy (~03/2023) History of hip replacement History of cataract surgery Status post left breast lumpectomy S/P left knee arthroscopy Status post hip replacement Status post cataract extraction and insertion of intraocular lens of left eye (05/30/18) Most Recent Vital Signs Temperature 36.4 C L 01/02/25 17:18 Temperature Source Temporal Artery Scan 01/02/25 17:18 Pulse 78 01/02/25 17:18 Pulse Rhythm Regular 01/02/25 06:20 Pulse 62 01/02/25 09:46 Respiratory Rate 14 01/02/25 17:18 Respiratory Depth Normal 01/02/25 06:20 Blood Pressure 111/66 01/02/25 17:18 Blood Pressure Mean 81 01/02/25 17:18 Pulse Oximetry 98 01/02/25 17:18 Respiratory End-tidal CO2 30 01/02/25 09:46 Oxygen Delivery Method Room Air 01/02/25 17:18 Oxygen Flow Rate 0 01/02/25 17:18 Pain Level 5 01/02/25 14:45 Allergies No Known Allergies Allergy (Verified 01/02/25 06:32) Active Medications Generic Name Dose Route Start Last Admin Trade Name Freq PRN Reason Stop Dose Admin Acetaminophen 1,000 mg 01/02/25 06:00 01/02/25 06:50 Acetaminophen 500 Mg Tab PO 01/02/25 23:59 1,000 mg PREOP KANE Administration Celecoxib 400 mg 01/02/25 06:00 01/02/25 06:50 Celecoxib 200 Mg Cap PO 01/02/25 23:59 400 mg PREOP KANE Administration Cefazolin Sodium/Dextrose 2 gm in 50 mls @ 100 mls/hr 01/02/25 06:00 01/02/25 08:25 Ancef Duplex IVPB 01/02/25 23:59 Infused PREOP KANE Infusion Tranexamic Acid/Sodium Chloride 1,000 mg in 100 mls @ 600 mls/hr 01/02/25 06:00 01/02/25 08:12 IVPB 01/02/25 23:59 Infused PREOP KANE Infusion Cefazolin Sodium/Dextrose 1 gm in 50 mls @ 100 mls/hr 01/02/25 12:00 01/02/25 14:51 Ancef Duplex IVPB 01/03/25 04:29 Infused Q8H KANE Infusion Sodium Chloride 0 ml 01/02/25 06:00 01/02/25 14:08 Normal Saline Flush 10 Ml Syr IV 01/02/25 23:59 10 ml PRN PRN Administration IV IV Catheter Type [Right Saline Lock Forearm] IV Catheter Gauge [Right 20 Forearm] Diet Orders Category Date Time Status Regular/Normal [DIET] Nutrition 01/02/25 Lunch Active Intake and Output - 24 Hour Total 12/13/24 08:54 thru 01/02/25 15:10 Intake Total 1430 Output Total 200 Balance 1230 Weight 72.121 kg Intake: IV 800 Oral 630 Output: Estimated Blood Loss 200 Other: Urine Color Yellow Urine Appearance Clear Urine Odor Normal Comment Pt voided large amount. Emesis Description None v v v v v v v v v Sending and/or Receiving Nurses: Please use comment section below to note any information pertinent to the patient hand-off not included above. Information / Comments: Report received from:radha @[id number]
[2025-01-02] MEDS: Atorvastatin 40 MG TAB PO (20:13)
[2025-01-02] MEDS: Celecoxib 200 MG CAP PO (20:13)
[2025-01-02] MEDS: Aspirin E.C. 81 MG TABEC PO (20:13)
[2025-01-03 02:25] VITALS: BP 159/75; PULSE 59; RESP 20; TEMP 36.9; O2SAT 96
[2025-01-03] MEDS: oxyCODONE 5 MG TAB PO (02:25)
[2025-01-03] MEDS: ceFAZolin 1 GM/50 ML BAG IVPB (05:00)
[2025-01-03] MEDS: Normal Saline Flush 10 ML SYR IV (05:04)
[2025-01-03] MEDS: Levothyroxine 112 MCG TAB PO (05:30)
[2025-01-03 07:47] VITALS: BP 108/60; PULSE 65; RESP 15; TEMP 37.1; O2SAT 98
--- NOTE | 2025-01-03 08:00 | W.PM.PROGNOT ---
Date of Service Date of service: 01/03/25 Time of Service: 07:20 Assessment and Plan Assessment and plan (1) History of total left hip arthroplasty: Status: Acute Assessment and plan: Bettina Valverde is a 74-year-old female who is status post left hip replacement for femoral head collapse with arthritis. Unfortunately, she is having significant muscular based pain. X-rays are negative. The hip is located. There is no fracture. She has no pain with passive motion and no pain at rest. She does describe burning type sensation and there is possibility of some involvement of the nerve from retraction. However, there is no luiz numbness. She is able to activate the muscles but is limited by pain. I personally think this is all muscle related. I encouraged her to use heat and massage. I have encouraged her to continue with her exercises and to keep moving as I expected to get better every time. Methocarbamol was given and may help out. We will work with PT later today and if she is able do better with her independent relation then we can go home with home health services. Subjective Subjective Interval history since last seen: Jorge L continues to have some pain about the leg. This is only when she really moves it on her own. She feels over the anterior aspect of the leg. She does feel there are some burning characteristic to it. However, she denies any worsening numbness. She has been able to move the leg although she does so with pain. She also reports some flatulence as well as burping. Mild nausea. No fevers no chills. Exam Narrative Exam Narrative: Evaluation the left hip shows a clean dry and intact dressing. The thigh is soft. No significant swelling. No ecchymosis. Exquisite pain to palpation along the anterior and anterolateral thigh. She endorses full sensation about the femoral lateral cutaneous nerve although it causes deep pain with palpation. She is able to activate her quadriceps and elevate the heel off the bed although she does so with pain and reluctant. No pain with passive internal and external rotation. Objective Last Vital Signs Temp 37.1 C 01/03/25 07:47 Pulse 65 01/03/25 07:47 Resp 15 01/03/25 07:47 BP 108/60 01/03/25 07:47 Pulse Ox 98 01/03/25 07:47 Objective Narrative Objective Narrative: X-ray of the left hip and the left femur does not show any sign of fracture or other complication. Components. Be well-positioned. PAWSS Have you Been Recently Intoxicated or Drunk Within the Last 30 days?: No Have you Ever Experienced Previous Episodes of Alcohol Withdrawal?: No Have you ever Experienced Withdrawal Seizures?: No Have you ever Experienced Delirium Tremens(DT)s?: No Have you ever undergone Alcohol Rehabilitation Treatment (i.e, inpt ot outpatient treatment programs)?: No Have you ever Experienced Blackouts?: No Have you ever Combined Alcohol with other Downers within the last 90 days?: No Have you ever Combined Alcohol with any other Substance of Abuse during the last 90 days?: No Positive Blood Alcohol level on Presentation? [PCS.BAL]: No Evidence of Increased Autonomic Activity (i.e. HR>120, tremor, sweating, agitation, nausea)?: No Result: 0 Time Spent with Patient Time Spent with Patient: 25-34 minutes Time was spent: preparing to see the patient(eg.review tests), obtaining and/or reviewing separately otained hiistory, indepentently interpreting results and counseling the patient
[2025-01-03] MEDS: Dexamethasone 4 MG TAB PO (08:55)
[2025-01-03] MEDS: Aspirin E.C. 81 MG TABEC PO (08:55)
[2025-01-03] MEDS: Pantoprazole 40 MG TABCR PO (08:55)
[2025-01-03] MEDS: Celecoxib 200 MG CAP PO (08:55)
[2025-01-03] MEDS: Ondansetron 4 MG/2 ML VIAL IVP (08:55)
[2025-01-03] MEDS: Acetaminophen 500 MG TAB 1000 MG PO (08:56)
--- NOTE | 2025-01-03 09:34 | DI.RAD_ITS ---
Exam(s) XR FEMUR LT EXAM: XR FEMUR LT CLINICAL HISTORY: S/P THR. TECHNIQUE: 2D digital imaging was performed of the left femur. Four images were obtained. AP and lat eral views were obtained. COMPARISON: CR XR HIP LT AP LAT ONLY from 11/21/2024 CR XR HIP LT 1V from 01/02/2025 XA XR HIP LT IN OR from 01/02/2025 FINDINGS: BONES: No acute fracture is present. No bony destructive lesion is seen. The patient has a left total hip arthroplasty which appears stable. Moderate degenerative changes are seen in the left knee. Th ere is a linear density medial to the proximal femur above the lesser trochanter. It appears to been present faintly visualized on the intraoperative film from 01/02/2025. SOFT TISSUE: Soft tissue gas is seen in the left thigh consistent with recent surgery. IMPRESSION: No acute abnormality. DATA REPOSITORY: RADIATION DOSE DELIVERED:
--- NOTE | 2025-01-03 11:35 | PT.INTREAT ---
PT Notes Visit Reasons: Left hip DJD Inpatient Physical Therapy Treatment Note [facility] Date: 01/03/2025 PRECAUTIONS:WBAT LLE SUBJECTIVE: Pt reports she was out of bed to the chair for breakfast but needed to get her leg elevated so she got back to bed.Pt states still can't move her leg and still has stabbing burning pain in her thigh OBJECTIVE: Pt presented semireclined in bed with pillow under LLE. ? repeat xray shows proper allignment of prosthetic? PAIN:4 burning spasms in left thigh VITALS: ?monitored by Nursing Therapeutic Activities (27609d[]): Direct one-on-one instruction in dynamic activities to improve functional performance. ? BED MOBILITY/TRANSFERS? Supine-sit: CGA ? Sit-supine: CGA increased time ? Sit-stand:SBA? Stand-sit: SBA ? Bed-Chair:SBA with FWW? Chair-bed: SBA with FWW Provided skilled cues and instruction on performance and technique throughout. Gait Training (47124): Direct one-on-one instruction and skilled instruction in: [x] employing an assistive device [] modified weight-bearing status [x] movement sequencing [x] turning and movement with proper form [x] Provided verbal cues for equipment management and technique [x] Provided instruction in gait pattern [x] Patient education regarding pacing and breathing techniques to maximize activity tolerance? Facilitated safe and correct performance of level surface ambulation covering a distance of 40 feet x 1 ,70feet x 1 , 25feet x1 using use front wheeled walker with contact-guard assist and wheelchair follow for safety. reported burning sensation in quad, Denied headache, chest pain, and lightheadedness throughout activity. Minimal verbal cueing provided for AD management, directional changes, sequencing to initiate with DF then hip flexion for swing phase on left and posture. ? Deviation: impaired foot clearance, excessive trunk extension to advance LLE, impaired knee extension at midstance without cueing to straighten knee.? STAIRS: 3 4 steps? and 2 6 steps with rails CGA with continuous cues for sequencing step to pattern ? Therapeutic Exercises (99877h[]): Direct one-on-one instruction in therapeutic exercises to develop strength, endurance, range of motion and flexibility. ? Exercises ?ANNA protocol exercises: supine heelslides AAROM, quad sets, glute sets, x 10 reps sitting: LAQ, seated Heelslide, PF/DF x10 reps - self massage to quad ? Provided skilled instruction in proper exercise performance ASSESSMENT:?Pt extremely apprehensive initially to WB through LLE. Pt tolerates progress to gait after pregait standing tasks of weight shifting side to side and repetitive anterior/posterior stepping at FWW. Pt responded well to gentle self massage to quad and lateral thigh for desensitization. Pt able to progress with stairs and reciprocal gait pattern by end of session. Pt educated on her HEP and role of HHPT.With encouragement and praise pt was able to progress to step through pattern with FWW with cue to initiate with DF of left foot. PLAN: cont with POC until discharge to home when medically appropriate TREATMENT CODE/TIME: 37499,04619,11430/ 3023-4410 DISCHARGE RECOMMENDATION: Home with HHPT and use of FWW
[2025-01-03 11:49] VITALS: BP 114/68; PULSE 64; RESP 15; TEMP 36.9; O2SAT 97
--- NOTE | 2025-01-03 13:05 | DSE_ITS ---
Date of service: 01/03/25 Time of Service: 12:40 Discharge Plan Disposition Condition: Good Discharge Details Reason For Visit: Left hip DJD Admit Date/Time: 01/02/25 16:42 Admit Provider: Alverto Sung Attending Provider: Alverto Sung Primary Care Provider: Rimma Alvarez Hospital Course Hospital Course: Patient was admitted to the medical/surgical floor following the procedure. There were no notable medical, surgical, or anesthetic complications. However, she struggled with pain while activating the muscle. She describes as a muscle cramping pain but also with some burning. However, she was able to activate the muscle and she had no luiz numbness. X-rays were obtained which showed no signs of complication. Mobilization began postoperatively. She was voiding spontaneously. Vitals were stable. Physical therapy worked with the patient and was cleared for discharge home with home health services. No acute medical issues. Pain was controlled on oral regimen. Home Meds and New Rx's Prescriptions: New celecoxib [Celebrex] 200 mg capsule 200 mg PO BID PRNQty: 60 0RF Rx Instructions: Take one tablet twice daily for pain and inflammation aspirin 81 mg tablet,delayed release (DR/EC) 81 mg PO BID 30 Days Qty: 60 0RF acetaminophen 500 mg tablet 1,000 mg PO Q8H PRN Qty: 90 0RF Rx Instructions: Take two tablets up to every 8 hours as needed for pain pantoprazole 40 mg tablet,delayed release (DR/EC) 40 mg PO DAILY Qty: 14 0RF dexamethasone 4 mg tablet 4 mg PO DAILY Qty: 2 0RF Rx Instructions: Take one tablet once daily for two days docusate sodium [Colace] 100 mg capsule 100 mg PO BID Qty: 28 0RF oxycodone 5 mg tablet 5 mg PO Q6H PRNQty: 12 0RF Rx Instructions: Take one tablet up to every 6 hours as needed for severe postoperative pain methocarbamol 750 mg tablet 750 mg PO Q8H PRNQty: 15 0RF Continued clobetasol 0.05 % ointment 1 applic VG BID PRN Qty: 60 0RF levothyroxine 112 mcg tablet 112 mcg PO DAILY Qty: 90 3RF benoit-vit [id number]-[id number]-min-herb 326 333.33 mg-6.67 mcg-32 mg tablet 1 tab PO DAILY atorvastatin 40 mg tablet 40 mg PO QHS Qty: 90 3RF Discontinued acetaminophen 500 MG tablet 1 - 2 tab PO BID PRN Discharge Instructions Additional Instructions: Total Hip Discharge Instructions Activity: The most important activity is to walk. You should try to take short walks a few times a day. You have no restrictions on movement or positioning, but do not try to force what you do. You will find some stiffness and weakness with hip flexion (lifting your knee). Do not try to strengthen this too early, continue to practice walking and stairs and this will come. - Outpatient physical therapy can be helpful to help return you to a normal gait and improve your flexibility and strength. This can start around 2 weeks. For some patients, it?s not necessary. Usually this is determined at the time of discharge or at the first post-operative visit. - You should wear the GABI hose on both legs for 2 weeks. Dressing: Keep the surgical dressing in place for at least one week. After the first week it may be removed and replace with light gauze and tape or nothing. It may get wet after 3 days but avoid soaking the dressing. If it gets wet, just lightly pat dry. It is important to always keep some gauze between skin folds, especially when you are sitting. Spend some time with the wound exposed when you are lying flat as the incision does wrinkle onto itself. Medications: - You should take Tylenol and an anti-inflammatory Celebrex as your primary pain control medications. If the Celebrex is too expensive or not covered, please call the office for another alternative (Advil/Ibuprofen or Naproxen/Aleve). - You have been prescribed a stronger pain medication Oxycodone for breakthrough pain, take as needed as prescribed. - You have also been prescribed a stomach acid reduction agent Pantoprozole to help reduce stomach acid and reflux. - You have also been prescribed Decadron to help with post-operative nausea and pain. You will take this for two days starting tomorrow. - You will be taking Aspirin 81mg twice a day for DVT prevention unless instructed otherwise. - You also have been prescribed Methocarbamol, a muscle relaxer, which can be used as needed every 8 hours for muscle spasm/pain. - If you have constipation you should take Colace (which has been prescribed) or Miralax (which is available [id number]). It takes most people 3-4 days to have a bowel movement. Follow-up: 2 weeks If you have any acute concerns or questions, please do not hesitate to contact the office at [phone]. You may contact Dr. Sung with any questions after hours through the hospital at [phone] or on his cell phone at [phone]. 1. Encounter Date and Reason I certify that Jorge L Mariano was seen by Alverto Sung MD on 01/03/25 and that I had a [id number] encounter with this patient that meets the physician face to face encounter requirements. 2. Clinical Findings Supporting Skilled Need and Homebound Status I certify that home health services are medically necessary, include either intermittent chcf and/or physical/speech therapy, and that this patient is homebound in that absences from the home require considerable and taxing effort and are infrequent or of short duration, or are attributable to the need to receive medical care. [X] (a) Attached documentation from encounter provides clinical findings supporting skilled need and homebound status (including what assistance patient requires to leave the home). The encounter with the patient was in whole, or in part, for the following medical condition, which is the primary reason for home health care: Left hip DJD Longterm: Physical Therapy: Jorge L would benefit from home health physical and occupational therapy. She has notable weakness and muscle soreness/pain which is limiting normal weightbearing and would benefit from PT/OT. Speech Therapy: Homebound: Jorge L is unable to leave her home unassisted due to weakness, pain, and recent hip surgery. 3. Certification and Authentication I certify that I composed the above information based on my clinical judgement relating to this patient's medical condition and, if applicable, clinical findings communicated to me by the NPP or inpatient physician who performed the Home Health Referral. All further orders will be obtained through Dr. Alverto Sung Stand Alone Forms: Anesthesia Discharge Inst., Anes.Nerve Block Instructions, Phil Castillo (DSU) Referrals: Alverto Sung MD [ [facility] STAFF PHYSICIAN] - 01/15/25 10:15 am Equipment/Supplies: Walker Activity:: Elevate Remove Dressings/Wound Care:: Do Not Remove Shower/Bathe:: Cover Diet:: As Tolerated DS: Summary Time Spent with Patient providing and/or coordinating discharge services: Less than 30 minutes Status at Discharge Functional status at discharge: uses cane/walker Overall status at discharge: patient is progressing back to baseline Mental Status: mental status grossly normal Speech and Movement: speech and movement normal Mood: congruent mood Affect: normal affect Quality:SDOH Health Related Social Needs: No Data to Display Exam Psych Mental Status: mental status grossly normal Speech and Movement: speech and movement normal Mood: congruent mood Affect: normal affect DS: Data Vitals/I&O Vitals and I&O: Vital Signs Temperature 97.0 F L 01/02/25 14:09 Pulse 62 01/02/25 14:09 Pulse Rhythm Regular 01/02/25 06:20 Pulse 62 01/02/25 09:46 Respiratory Rate 16 01/02/25 14:09 Respiratory Depth Normal 01/02/25 06:20 Blood Pressure 162/81 H 01/02/25 14:09 Blood Pressure Mean 96 01/02/25 09:46 Pulse Oximetry 97 01/02/25 14:09 Respiratory End-tidal CO2 30 01/02/25 09:46 Oxygen Delivery Method Room Air 01/02/25 14:09 Oxygen Flow Rate 0 01/02/25 06:20 Pain Level 9 01/02/25 14:09 Intake & Output 01/01/25 01/02/25 01/02/25 23:59 11:59 23:59 Intake Total 1090 / 1430 340 / 1430 Output Total 200 / 200 Balance 890 / 1230 340 / 1230 Weight 158 lb 15.993 oz 158 lb 15.993 oz Intake: IV 700 / 800 100 / 800 Oral 390 / 630 240 / 630 Output: Estimated Blood Loss 200 / 200 Other: Urine Color Yellow Urine Appearance Clear Urine Odor Normal Comment Pt voided large amount. Emesis Description None None PFSH All Active Problems History of total left hip arthroplasty (Acute 01/02/25) Severe left groin pain (Acute) Essential hypertension (Acute) Bilateral sensorineural hearing loss (Acute) Orthostatic hypotension (Chronic) Making adaptations, declines meds at present. CKD stage G3a/A1, GFR 45-59 and albumin creatinine ratio <30 mg/g (Acute) Varicose veins of lower extremity (Acute) Stress incontinence of urine (Acute 05/13/17) Osteoporosis (Chronic) forearm; unable to tolerate alendronate in 2021 Osteoarthritis (Acute 06/28/12) Lichen sclerosus et atrophicus (Acute) Hypothyroidism (Acute 02/21/13) Medical History 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 Managed by [facility]. Basal cell carcinoma of skin (03/25/12) Polyp of colon Hyperplastic polyp 2022 [place] of left macula Surgical History History of colonoscopy (~03/2023) History of hip replacement History of cataract surgery Status post left breast lumpectomy S/P left knee arthroscopy Status post hip replacement (R) Status post cataract extraction and insertion of intraocular lens of left eye (05/30/18) Family History Mother , age 94 Essential hypertension Hyperlipidemia Father , age 65 Essential hypertension Heart disease Hyperlipidemia Prostate cancer Brother , age 80 Diabetes Maternal Grandmother , age 88 Diverticulitis Paternal Grandmother No problems noted. Son No problems noted. Daughter Asthma Daughter Age: 40 Depression Migraine Maternal Grandfather , age 91 No problems noted. Paternal Grandfather , age 85 No problems noted. Social History Smoking/Tobacco Use Status: Never Tobacco: How many years used: 0 Second Hand Exposure: Yes Smoking risk assessment performed?: Yes Alcohol Intake: current Alcohol Intake frequency: a few times a week Alcohol type: beer, wine and hard liquor Drug use: Never Substance use type: does not use Caregiver/Support person: No Household members: spouse Housing: house Number of Children: 3 number of grandchildren: 3 Communication Needs: Hard of Hearing Do you need help understanding health information?: Never current occupation: RETIRED, worked in offices Pets and animals: No Sexually active: No Do you think of yourself as: straight/heterosexual Current gender identity: female What is your relationship status?: How often do you talk on the phone with friends or family?: three or more times per week How often do you get together with friends or relatives?: twice per week How often do you attend lutheran or bahai services?: 4 or more times per year Do you belong to any clubs or organized social groups?: yes Panel score (0-1 are the most socially isolated patients): 4 What type of physical activity do you participate in: walking and other Details: pickleball for 2 hours, 3 x week and exercises/stretching 3 x week Duration: > 90 minutes/day Frequency: 5-6 times per week Dary/Quaker: Scientologist Special dary needs: No Seatbelt use: always Helmet use: Yes Helmet use: always Drive intox or ride w/intox ross carrier driver: No Do you feel safe at home: Yes Do you feel safe in your relationship?: Yes Victim of physical abuse: No Victim of emotional abuse: No Victim of sexual abuse: No Would you like helpful sources: No Time Spent with Patient Time Spent with Patient: <45 minutes Time was spent: preparing to see the patient(eg.review tests), obtaining and/or reviewing separately otained hiistory, indepentently interpreting results and care coordination
--- NOTE | 2025-01-03 13:46 | CHAPLAIN ---
Bettina Valverde was resting in bed waiting to be discharged following a hip replacement surgery. Her was with. She stayed over night, although people don't usually, she said, and is feeling ready to go home today.
--- NOTE | 2025-01-03 14:02 | PDOC.CMDIS ---
Date of service: 01/03/25 Time of Service: 14:02 LACE Index Scoring Tool Questions: Length of Stay (in days): 1 Was the patient admitted via the E.D.?: No Comorbidities: Mild Liver/Renal Disease and Any Tumor E.D. Visits: 0 Answers: Total Score: 6 Risk of Readmission: Low Risk Care Management Discharge Plan Reason for Hospitalization: Left hip DJD s/p left hip arthroplasty Discharge Plan: Jorge L was discharged this afternoon with new orders for HH PT. She was given excellent discharge instructions by Dr. Sung. She will continue to follow this plan of care until she has her f/u with her orthopedic surgeon on 01/15. Jorge L was transported home by her . Patient/Family Education Needs: Review of discharge instructions, activity, limitations, and discuss Ask me 3. Services Needed at Discharge: Home Health Care Services (new PT) SDOH Health Related Social Needs: No Data to Display
== END 2025-01-03 13:57 | disposition home or self-care (01) ==
LOC: MS 01-03 08:43
PROVIDERS: Admitting Provider Student in an Organized Health Care Education/Training Program; PCP Family Medicine; Visit Provider Student in an Organized Health Care Education/Training Program
PROC: (CPT 27130; principal; 2025-01-02 07:30)
DX: M16.12 Unilateral primary osteoarthritis, left hip (principal); I12.9 Hypertensive chronic kidney disease with stage 1 through stage 4 chronic kidney disease, or unspecified chronic kidney disease; N18.31 Chronic kidney disease, stage 3a; E03.9 Hypothyroidism, unspecified; L90.0 Lichen sclerosus et atrophicus; M81.0 Age-related osteoporosis without current pathological fracture; N39.3 Stress incontinence (female) (male); I95.1 Orthostatic hypotension; G89.18 Other acute postprocedural pain; Z79.899 Other long term (current) drug therapy
CPT/HCPCS: 27130; 20985; 73552; 97110; 97116; 97162; 97530; 73501; C1776; G0378; J0690; J1100; J2003; J2250; J2371; J2401; J2405; J2704; J8540

== ENCOUNTER 2025-01-15 10:55 | Outpatient (CLI) | payer MEDICARE, SELFPAY ==
--- NOTE | 2025-01-15 10:00 | DI.RAD_ITS ---
Exam(s) XR HIP LT COMPLETE AP PELVIS EXAM: XR HIP LT COMPLETE AP PELVIS CLINICAL HISTORY: 1ST POST OP S/P L ANNA. TECHNIQUE: 2D digital imaging was performed. Two views. COMPARISON: CR XR HIP LT 1V from 01/02/2025 FINDINGS: BONES: No acute fracture is present. No bony destructive lesion is seen. Sacrum is partially obscured by overlying bowel gas and stool. JOINTS: No dislocation present. The SI joints and pubic symphysis are intact. Stable appearance of bilateral hip prostheses. SOFT TISSUE: Normal. IMPRESSION: Stable appearance of bilateral hip prostheses. DATA REPOSITORY: RADIATION DOSE DELIVERED:
== END 2025-01-15 10:56 | disposition home or self-care (01) ==
LOC: DIORS 10:58
PROVIDERS: PCP Family Medicine; Referring Provider Family Medicine; Visit Provider Physician Assistant
DX: Z47.1 Aftercare following joint replacement surgery (principal); Z96.642 Presence of left artificial hip joint
CPT/HCPCS: 99024; 73502

== ENCOUNTER → 2025-02-12 10:01 | Outpatient (BNVA) | payer MEDICARE, SELFPAY | PROVIDERS: PCP Family Medicine; Referring Provider Family Medicine; Visit Provider Physician Assistant | DX: Z47.1 Aftercare following joint replacement surgery (principal); Z96.642 Presence of left artificial hip joint | CPT/HCPCS: 99024 ==

== ENCOUNTER 2025-03-29 11:44 | Outpatient (CLI) | payer MEDICARE, SELFPAY ==
--- NOTE | 2025-03-29 10:45 | DI.RAD_ITS ---
Exam(s) XR KNEE LT 4V AP,LAT,DAMIAN,PAT EXAM: XR KNEE LT 4V AP,LAT,DMAIAN,PAT CLINICAL HISTORY: eval L knee pain. TECHNIQUE: 2D digital imaging was performed. Three views. COMPARISON: CR LEFT KNEE 3 VIEW COMPLETE from 01/13/2010 FINDINGS: BONES: No acute fracture is present. No bony destructive lesion is seen. JOINTS: There is severe narrowing of the medial femoral tibial joint space, with a [id number] appearance. There is mild flattening of the medial femoral condyle and medial tibial plateau. There is prominent periarticular spurring. Varus angulation is present. No joint effusion is seen. There is [id number] narrowing of the medial patellofemoral joint space. SOFT TISSUE: Venous varicosities. IMPRESSION: Severe degenerative changes of the medial femoral tibial joint. DATA REPOSITORY: RADIATION DOSE DELIVERED:
== END 2025-03-29 11:45 | disposition home or self-care (01) ==
LOC: DIORS 11:45
PROVIDERS: PCP Family Medicine; Referring Provider Family Medicine; Visit Provider Student in an Organized Health Care Education/Training Program
DX: Z47.1 Aftercare following joint replacement surgery (principal); Z96.642 Presence of left artificial hip joint; M25.562 Pain in left knee; M17.12 Unilateral primary osteoarthritis, left knee; S76.112A Strain of left quadriceps muscle, fascia and tendon, initial encounter
CPT/HCPCS: 99213; 73564

== ENCOUNTER → 2025-04-19 13:00 | Outpatient (BNVA) | payer MEDICARE, SELFPAY | PROVIDERS: PCP Family Medicine; Referring Provider Family Medicine; Visit Provider Physician Assistant | DX: M17.12 Unilateral primary osteoarthritis, left knee (principal); M76.32 Iliotibial band syndrome, left leg; M70.62 Trochanteric bursitis, left hip | CPT/HCPCS: 99213 ==

== ENCOUNTER → 2025-07-09 00:12 | Outpatient (CLI) | payer MEDICARE, SELFPAY ==
--- NOTE | 2025-07-09 07:00 | DI.MAMMO_ITS ---
Exam(s) MG MAMMO SCREENING 60 MIN DUR EXAM: MG MAMMO SCREENING 60 MIN DUR CLINICAL HISTORY: breast cancer screening,dcis lt breast,z12.39,d05.12 TECHNIQUE: Bilateral full field digital CC and MLO mammographic images were obtained with 3D tomosynthesis and utilizing computer aided detection (CAD). COMPARISON: Comparison is made with prior examinations. FINDINGS: Masses/Architectural Distortion: No suspicious masses or areas of architectural distortion are present. There again seen findings of a prior left lumpectomy. Microcalcifications: No suspicious pleomorphic-type are seen. Skin Thickening/Nipple Retraction: None. IMPRESSION: 1. No significant interval change with no specific features of malignancy noted. 2. Unless there is more urgent need, screening mammography is recommended, as per [employer] guidelines. 3. The findings were discussed with the patient on the date of the examination. BI-RADS Category 2 - Benign Findings Breast Density - Category C - The breast are heterogeneously dense, which may obscure small masses. Breast density Category C or D implies that the patient has dense breast tissue. Dense breast tissue can make it harder to find cancer on a mammogram. Dense breast tissue is also associated with an increased risk of breast cancer. This information about the result of the mammogram report was provided to the patient to raise their awareness. Use this report when you speak with the patient about their risks for breast cancer, which includes their family history. At that time, you may recommend additional screening tests (Ultrasound or MRI) as these tests may add significant information. A negative radiographic report should not delay biopsy if a dominant or clinically suspicious mass is present. Up to ten percent of cancers are not identified on mammography. A negative report may reinforce clinical impression. Adenosis and dense breasts may obscure an underlying neoplasm. False positive reports average 6 to 10%. Patient will receive a letter notifying them of these results.
== END ==
LOC: DI 00:12
PROVIDERS: PCP Family Medicine; Visit Provider Family Medicine
DX: Z12.31 Encounter for screening mammogram for malignant neoplasm of breast (principal); D05.12 Intraductal carcinoma in situ of left breast
CPT/HCPCS: 77063; 77067

== ENCOUNTER → 2025-07-12 00:21 | Outpatient (CLI) | payer MEDICARE, SELFPAY ==
--- NOTE | 2025-07-12 11:21 | DI.DEXA_ITS ---
Exam(s) XR DEXA BONE DENSITY W/WO SIN EXAM: XR DEXA BONE DENSITY W/WO SIN CLINICAL HISTORY: f/u osteoporosis,m81.0,menopausal disorder TECHNIQUE: COMPARISON: CR XR DEXA BONE DENSITY W/WO SIN from 08/03/2019 FINDINGS: Lateral Spine Image: Unremarkable. No compression deformities identified. The patient has had bilateral total hip replacements. Left forearm: Total T-Score: -3.9. This compares to -3.5 on the prior examination. Total Z-Score: -1.3 T- and Z-scores: Findings are consistent with osteoporosis. Lumbar Spine: Total T-Score: -2.4. This compares to -1.8 on the prior examination for decrease in the bone mineral density. There is evidence of osteoporosis in the L1 and L3 vertebral bodies. Total Z-Score: 0.1 T- and Z-scores: There is osteoporosis seen in individual vertebral bodies in the lumbar spine. IMPRESSION: There is osteoporosis seen in the left forearm and within the lumbar spine.
== END ==
LOC: DI 00:21
PROVIDERS: PCP Family Medicine; Visit Provider Family Medicine
DX: N95.9 Unspecified menopausal and perimenopausal disorder (principal); M81.0 Age-related osteoporosis without current pathological fracture
CPT/HCPCS: 77080